=== PATIENT | female | born 1930 | race Caucasian/White ===

== ENCOUNTER 2016-04-14 13:41 | Inpatient (IN) | payer MEDICARE ==
[~2016-04-14] VITALS: Ht 157.5 cm; Wt 75.0 kg
[2016-04-14 16:10] VITALS: BP 152/85; PULSE 78; RESP 18
[2016-04-14] MEDS ORDERED: QUETIAPINE 25 MG TAB PO PRN (17:30)
[2016-04-14] MEDS ORDERED: POLYETHYLENE GLYCOL 17 GM PACKET PO PRN (17:30)
[2016-04-14] MEDS ORDERED: LACTULOSE 30ML CUP PO PRN (17:30)
[2016-04-14] MEDS ORDERED: BISACODYL 10 MG SUPP PR PRN (17:30)
[2016-04-14] MEDS ORDERED: ZOLPIDEM 5 MG TAB PO PRN (18:00)
[2016-04-14] MEDS: ASCORBIC ACID 500 MG TAB PO SCH (18:51)
[2016-04-14] MEDS: FUROSEMIDE 20 MG TAB PO SCH (18:51)
[2016-04-14] MEDS: FERROUS SULFATE (EC) 325 MG TAB PO SCH (18:51)
[2016-04-14] MEDS: PANTOPRAZOLE (EC) 40 MG TAB PO SCH (18:52)
[2016-04-14 18:56] VITALS: Ht 157.5 cm; Wt 75.0 kg
[2016-04-14 19:51] VITALS: BP 135/63; RESP 20
[2016-04-14 23:49] LABS: ADD UMIC YES; URINE BILIRUBIN (Dip) NEGATIVE (NEGATIVE); URINE BLOOD (Dip) NEGATIVE (NEGATIVE); URINE COLOR LT. YELLOW (YELLOW); URINE GLUCOSE (Dip) NEGATIVE (NEGATIVE); URINE KETONES (Dip) NEGATIVE (NEGATIVE); URINE LEUKOCYTE ESTERASE (Dip) 2+ (NEGATIVE); URINE NITRITE (Dip) NEGATIVE (NEGATIVE); URINE TOTAL PROTEIN (Dip) NEGATIVE (NEGATIVE); URINE UROBILINOGEN (Dip) 0.2 E.U./dL (0.1-1.0)
[2016-04-15 00:04] LABS: BACTERIA,URINE FEW; URINE RBCS 0-2 /HPF (0)
[2016-04-15 00:05] LABS: SQUAMOUS EPITHELIAL CELL,UR MODERATE
[2016-04-15] MEDS: HYDROCODONE/APAP (5/325) TAB PO PRN (02:32)
[2016-04-15] MEDS: PANTOPRAZOLE (EC) 40 MG TAB PO SCH ×2 (06:23→17:34)
[2016-04-15] MEDS: FUROSEMIDE 20 MG TAB PO SCH ×2 (06:23→17:34)
[2016-04-15] MEDS: LEVOTHYROXINE 100 MCG TAB PO SCH (06:23)
[2016-04-15 06:55] LABS: BASOPHILS % 0.1 % (0.0-2.0); EOSINOPHILS # 0.1 10^3/ul (0.0-0.5); HEMATOCRIT 25.1 % (37.0-47.0); LYMPHOCYTES # 0.9 10^3/ul (0.8-2.9); LYMPHOCYTES % 16.5 % (15.0-51.0); MEAN CORPUSCULAR HEMOGLOBIN 25.5 pg (29.0-33.0); MEAN CORPUSCULAR VOLUME 79.5 fl (82.0-101.0); MEAN PLATELET VOLUME 8.8 fl (7.4-10.4); MONOCYTE # 0.4 10^3/ul (0.3-0.9); MONOCYTES % 7.5 % (0.0-11.0); NEUTROPHIL # 4.1 10^3/ul (1.6-7.5); NEUTROPHILS % 74.9 % (39.0-77.0); PLATELET COUNT 125 10^3/UL (140-440); RED BLOOD COUNT 3.15 10^6/ul (4.20-5.40); RED CELL DISTRIBUTION WIDTH 27.1 % (11.5-14.5); UNCORRECTED WBC 5.4 10^3/ul (4.8-10.8); WHITE BLOOD COUNT 5.4 10^3/ul (4.8-10.8)
[2016-04-15 07:07] LABS: ALBUMIN 2.5 g/dl (3.3-4.9)
[2016-04-15 07:10] LABS: BILIRUBIN,INDIRECT 0.6 mg/dl (0-1.1); BILIRUBIN,TOTAL 0.6 mg/dl (0.2-1.3); CREATININE 1.12 mg/dl (0.44-1.00)
[2016-04-15 07:11] LABS: ALBUMIN/GLOBULIN RATIO 0.96; CALCIUM 8.3 mg/dl (8.4-10.2); TOTAL PROTEIN 5.1 g/dl (6.1-8.1)
[2016-04-15 07:15] LABS: CONDITION 1; LH ANALYZER COMMENTS 1; SUSPECT 1
[2016-04-15] MEDS ORDERED: INFLUENZA VIRUS VACCINE 0.5 ML (DISPENSING) IM* ONE (09:00)
[2016-04-15] MEDS ORDERED: POTASSIUM CHLORIDE 20 MEQ POWDER FOR ORAL SOLN PO SCH (09:00)
[2016-04-15] MEDS: CALCITRIOL 0.25 MCG CAP PO SCH (09:06)
[2016-04-15] MEDS: ALLOPURINOL 100 MG TAB PO SCH (09:08)
[2016-04-15] MEDS: FERROUS SULFATE (EC) 325 MG TAB PO SCH ×2 (09:08→17:34)
[2016-04-15] MEDS: SPIRONOLACTONE 25 MG TAB PO SCH (09:08)
[2016-04-15] MEDS: ESCITALOPRAM 10 MG TAB PO SCH (09:08)
[2016-04-15] MEDS: TAMOXIFEN 10 MG TAB PO SCH (09:08)
[2016-04-15] MEDS: ASCORBIC ACID 500 MG TAB PO SCH ×2 (09:10→17:33)
--- NOTE | 2016-04-15 11:57 | HP ---
DATE OF ADMISSION: 04/14/2016 CHIEF COMPLAINT: Status post left femur fracture, debility. HISTORY OF PRESENT ILLNESS: This is an 86-year-old female with past medical history of coronary art devorah disease, history of chronic kidney disease stage IIIB/IV with a baseline creatinine around 1.5 t o 1.7 mg/dL, history of CHF, hypertension, history of CVA, history of chronic AFib, who presented to the [facility] emergency room on April 03 with a fall. The patient had x-rays which showe d distal left humeral fracture. The patient was subsequently admitted to [facility] where she underwent an orthopedic evaluation and intermedullary nailing of her left femur. The patient's post operative course was complicated with encephalopathy which is felt to be secondary to ICU hospital s jil. The patient was seen by neurologist, , MRI of the brain was done, there was no evide nce of acute stroke. The patient's mental status eventually improved during the hospital course. T he patient also was noted to have thrombocytopenia which is chronic in nature and was evaluated by h ematologist, Dr. Ronquillo. The patient, however, had a significant decline from her premorbid condit ion and as a result was transferred to [facility] acute rehab for continued care. Upon my evaluation the patient is , currently stable. Denies any fevers, chills, nausea, vomi ting, shortness of breath. Denies any pain. PAST MEDICAL HISTORY: As stated above, history of chronic kidney disease, history of chronic AFib, history of gout, depression, hypothyroidism, history of breast CA, history of chronic venous insuffi ciency. PAST SURGICAL HISTORY: Status post lumpectomy, status post venous mapping, status post endarterecto my. ALLERGIES: PATIENT ALLERGIC TO 1. PENICILLIN. 2. MEPERIDINE. FAMILY HISTORY: No family history of kidney disease or heart disease. SOCIAL HISTORY: Lives at home with her daughter. MEDICATIONS: The patient's medications have been reviewed. REVIEW OF SYSTEMS: A 14-point review of systems was conducted. Pertinent positives in HPI, otherwi se negative. PHYSICAL EXAMINATION: VITAL SIGNS: Blood pressure is 135/62, respirations 20, pulse 73, temperature 98.3. HEENT: Head is normocephalic. NECK: Supple. HEART: Regular rate. LUNGS: Show diminished breath sounds at base. ABDOMEN: Soft, nontender to palpation. No rebound or guarding. EXTREMITIES: Negative for clubbing, cyanosis. Trace edema. 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 NEUROLOGIC: No focal deficits. MUSCULOSKELETAL: Noted dressing over her left femur is clean, dry and intact. LABORATORY DATA: Showed sodium 144, potassium 4.0, chloride 103, BUN 24, creatinine 1.12. White co unt 5.0, hemoglobin 8.0, hematocrit 35.1, platelet count is 125. Medications have been reviewed. ASSESSMENT AND PLAN: 1. Left femoral fracture status post intramedullary nailing. The patient is currently stable. Tahir n is for physical therapy, occupational therapy, continue pain control, monitor closely. 2. Acute encephalopathy, etiology is likely toxic metabolic in hospital stay. Mental status is imp roving. The patient is status post MRI at outside hospital, showed no acute stroke. Will continue to monitor. 3. Chronic kidney disease, stage III. The patient's renal function is at baseline. We will contin ue current treatment plan, supportive care, renally dose all meds. 4. Chronic atrial fibrillation, currently rate controlled. Continue medical management. Continue carvedilol, digoxin. Continue Xarelto. 5. Hypertension. Blood pressure controlled. Continue current blood pressure regimen. 6. Hypothyroidism. Continue Synthroid. 7. History of gout. Continue allopurinol. 8. History of breast cancer. Patient on tamoxifen, will continue. 9. Thrombocytopenia, chronic. Will continue to monitor. 10. Anemia, likely of chronic disease. The patient is status post EGD, colonoscopy at outside hosp ital. No evidence of acute bleed. Will continue to monitor H and H levels closely. 11. Gastrointestinal and deep venous thrombosis prophylaxis. Continue with Xarelto and PPI. 12. Depression. Continue Lexapro. 13. History of congestive heart failure, currently compensated. Continue medical management. Please note I spent over at 20 minutes of face to face time with the patient, discussing code status advance directives, patient is FULL CODE. Dictated By: JAKE OLIVO/MARCO ANTONIO Conf#: [id number] DID#: [id number]
--- NOTE | 2016-04-15 12:19 | CONS ---
DATE OF ADMISSION: 04/14/2016 DATE OF CONSULTATION: 04/15/2016 REHABILITATION POST ADMISSION PHYSICIAN EVALUATION REHABILITATION IMPAIRMENT CATEGORY: Left periprosthetic femur fracture, status post ORIF. ACTIVE COMORBIDITIES: 1. Acute toxic metabolic encephalopathy. 2. Acute pain syndrome. 3. Chronic kidney disease. 4. Hypertension. 5. Hypothyroidism. 6. Depression and anxiety. 7. Anemia. 8. Coronary artery disease. 9. History of atrial fibrillation. 10. Impairments in self-care, mobility and cognition. 11. History of left TKA. HISTORY OF PRESENT ILLNESS: The patient is a pleasant 86-year-old female with a history of multiple medical comorbidities, who is status post a mechanical fall with a resultant left periprosthetic distal femur fracture. The patient did require an ORIF. The patient's hospital course has been notable for confusion secondary to acute encephalopathy, in addition to anemia and pain. The patient has now been cleared to transfer to the rehabilitation unit for comprehensive interdisciplinary rehab care. FUNCTIONAL HISTORY: Prior to recent events she was independent in self-care tasks and mobility. Currently she is maximal assist for self-care and max to total assist for mobility. I have reviewed the preadmission screen and the patient's current functional status is consistent with the preadmission screen. SOCIAL HISTORY: The patient reportedly lives at home with family and hopes to return there upon discharge. PAST MEDICAL HISTORY: 1. History of left total knee arthroplasty. 2. History of low back pain. 3. Chronic kidney disease. 4. Coronary artery disease. 5. Atrial fibrillation. 6. History of GI bleed. 7. History of breast carcinoma. CURRENT MEDICATIONS: 1. Ascorbic acid 500 mg p.o. b.i.d. 2. Digoxin 125 mcg p.o. every other day. 3. Lactulose p.r.n. 4. Potassium chloride 20 mEq daily. 5. Ferrous sulfate 325 b.i.d. 6. Furosemide 20 mg b.i.d. 7. Hydrocodone p.r.n. pain. 8. Protonix 40 mg p.o. daily. 9. Levothyroxine 100 mcg p.o. q.a.m. 10. Calcitriol 0.25 mcg p.o. daily. 11. Carvedilol 3.125 mg p.o. b.i.d. 12. Tamoxifen 20 mg p.o. daily. 13. Xarelto 15 mg p.o. at bedtime. 14. Allopurinol 100 mg p.o. daily. 15. Tramadol p.r.n. ALLERGIES: 1. PENICILLIN. 2. MEPERIDINE. PHYSICAL EXAMINATION: VITAL SIGNS: The patient is currently afebrile, with stable vital signs. HEENT: The extraocular motions are intact. Oropharynx is clear. NECK: Supple. LUNGS: Clear anteriorly. CARDIAC: S1, S2. ABDOMEN: Soft, nontender. Positive bowel sounds. NEUROLOGIC: She is awake and alert. She can follow simple 1-step commands. She has delayed thought processing speed. She demonstrates antigravity strength in the bilateral upper extremity and the right lower extremity. Dorsiflexion and plantar flexion are intact on the left. PLAN: The patient has been admitted for comprehensive interdisciplinary acute rehab and is anticipated to tolerate 3 hours of daily therapy in divided doses for at least 5/7 days a week. The treatment plan will include: 1. Physical therapy to focus on bed mobility, transfers, and household ambulation, with the goal of having the patient reach a standby assist level. 2. Occupational therapy to focus on hygiene, grooming, dressing, bathing, and toileting activities, with the goal of having the patient reach a standby assist level. 3. Speech therapy for full cognitive assessment and retraining, with the goal of having the patient return to baseline cognition. 4. Rehabilitation nursing for carryover of therapeutic interventions, with the goal of continent of bowel and bladder, and the goal of pain adequately managed on oral medications. ESTIMATED LENGTH OF STAY: 14 days. DISPOSITION GOAL: Home. Rehabilitation Barrier: Pain Intervention for barrier: Interdisciplinary care I acknowledge that I have performed a full physical examination on this patient within 24 hours of admission to the rehabilitation unit and believe the patient is a good candidate for comprehensive interdisciplinary rehab care and is anticipated to make reasonable goals in a reasonable period of time, as outlined above. Dictated By: SHARRON CERNA/MARCO ANTONIO Conf#: [id number] DID#: [id number] MTDD
--- NOTE | 2016-04-15 12:36 | CONS ---
DATE OF ADMISSION: 04/14/2016 DATE OF CONSULTATION: 04/15/2016 TYPE OF CONSULTATION: Cardiology. REASON FOR CONSULTATION: Atrial fibrillation. REFERRING PHYSICIAN: Dr. Hdez CHIEF COMPLAINT: Debility, needs rehabilitation. HISTORY OF PRESENT ILLNESS: Thank you for this referral. History obtained from the patient, as wel l as discussion with the staff and extensive review of the old chart. The patient is also known to me from outpatient workup and previous admission to the hospital. This is a pleasant 86-year-old fe male with multiple complicated medical history who was transferred from [facility] for acute r ehabilitation. The patient had suffered a fall and apparently had a hip fracture and apparently un dergone a hip surgery. Has complicated ____. Had a complicated cardiac history ____ . The patient denies any chest pain or pressure to me. Has mild shortness of breath but has been stable. She has chronic atrial fibrillation, has been controlled on the heart rate. She has been as an outpatient on Xarelto, had been held for some time at [place] because OB positive stool and anemia. She had a workup including EGD and colonoscopy done and it was thought it can be resumed as long as she is mon itored. She has mild shortness of breath but no chest pain or pressure, no palpitation. PAST MEDICAL HISTORY: History of hypertension, history of atrial fibrillation, chronic, history of TIAs/CVA, history of chronic kidney disease, congestive heart failure secondary to diastolic dysfunc tion with normal ejection fraction, history of anxiety. SURGICAL HISTORY: Hysterectomy, breast lumpectomy, orthopedic surgery, bilateral knee surgery, hip surgery. ALLERGIES: 1. PENICILLIN. 2. ____ MEDICATIONS: As per medication reconciliation, personally reviewed which includes: 1. Xarelto 15 mg. 2. Digoxin 0.125. 3. Potassium. 4. Levothyroxine. 5. Lasix 20 p.o. b.i.d. 6. Carvedilol 12.5 b.i.d. REVIEW OF SYSTEMS: As above. The patient also with poor memory. PHYSICAL EXAMINATION: VITAL SIGNS: Temperature 98.3, heart rate of 74, blood pressure 135/63, respiration rate of 20, sat urating 99%. HEENT: Normocephalic, atraumatic. No acute distress. Pupils are equal. CARDIOVASCULAR: Regular, regular, systolic murmur. PULMONARY: Minimal rhonchi at the base. GASTROINTESTINAL: Soft, nontender. EXTREMITIES: Positive trivial lower extremity edema. NEUROLOGIC: Awake, responds appropriately to person and place. PSYCHIATRIC: Appears to be calm and pleasant. LABORATORY: WBC of 5.4, hemoglobin 8, platelet 125. Sodium 144, potassium 4, BUN of 24, creatinine 1.12, glucose 103. Albumin is 2.5. ASSESSMENT AND PLAN: 1. Atrial fibrillation, chronic, currently on anticoagulation and heart rate control. 2. Congestive heart failure secondary to diastolic dysfunction, chronic and stable. We will contin ue with the current regimen. 3. History of chronic kidney disease. 4. Kidney disease. 5. Hypertension. 6. History of cerebrovascular accidents. 7. Anemia and OB positive stool, status post workup. 8. Encephalopathy, currently has improved. 9. History of anxiety disorder. RECOMMENDATIONS: We will continue with the current cardiac care for now including beta higinio, nicole t Coreg and digoxin. Thyroid management will be continued. Diuresis will be continued as ____ phys ical therapy and rehab will be continued. I will discontinue patient's potassium and instead put he r on Aldactone. We will check electrolytes and adjust it as needed. Dictated By: AUGUST BALDWIN/MARCO ANTONIO Conf#: [id number] DID#: [id number] CC: JAKE HDEZ DO;*EndCC*
[2016-04-15] MEDS: DIGOXIN 0.125 MG TAB PO SCH (12:54)
[2016-04-15] MEDS ORDERED: TEMAZEPAM 15 MG CAP PO PRN (13:00)
[2016-04-15] MEDS: RIVAROXABAN 15 MG TABLET PO SCH (17:34)
[2016-04-15] MEDS: TEMAZEPAM 15 MG CAP PO PRN (20:10)
[2016-04-15 21:24] VITALS: BP 119/59; RESP 18
[2016-04-16] MEDS: LEVOTHYROXINE 100 MCG TAB PO SCH (06:37)
[2016-04-16] MEDS: PANTOPRAZOLE (EC) 40 MG TAB PO SCH ×2 (06:37→17:36)
[2016-04-16] MEDS: FUROSEMIDE 20 MG TAB PO SCH ×2 (06:38→17:39)
[2016-04-16 08:00] VITALS: BP 139/73; PULSE 70; PULSE 72; RESP 20
[2016-04-16 08:16] LABS: BASOPHILS % 0.4 % (0.0-2.0); EOSINOPHILS # 0.1 10^3/ul (0.0-0.5); HEMATOCRIT 26.7 % (37.0-47.0); HEMOGLOBIN 8.6 g/dl (12.0-16.0); LYMPHOCYTES % 19.2 % (15.0-51.0); MEAN CORPUSCULAR HEMOGLOBIN 25.8 pg (29.0-33.0); MEAN CORPUSCULAR HGB CONC 32.3 g/dl (32.0-37.0); MEAN CORPUSCULAR VOLUME 79.8 fl (82.0-101.0); MEAN PLATELET VOLUME 9.2 fl (7.4-10.4); MONOCYTE # 0.4 10^3/ul (0.3-0.9); MONOCYTES % 7.8 % (0.0-11.0); NEUTROPHIL # 3.6 10^3/ul (1.6-7.5); NEUTROPHILS % 71.6 % (39.0-77.0); PLATELET COUNT 122 10^3/UL (140-440); RED BLOOD COUNT 3.35 10^6/ul (4.20-5.40); RED CELL DISTRIBUTION WIDTH 27.9 % (11.5-14.5)
[2016-04-16 08:19] LABS: ALBUMIN 2.7 g/dl (3.3-4.9); POTASSIUM 3.8 mmol/L (3.5-5.1)
[2016-04-16 08:21] LABS: CREATININE 1.24 mg/dl (0.44-1.00)
[2016-04-16 08:22] LABS: BILIRUBIN,INDIRECT 0.5 mg/dl (0-1.1); BILIRUBIN,TOTAL 0.5 mg/dl (0.2-1.3); CALCIUM 8.3 mg/dl (8.4-10.2); TOTAL PROTEIN 5.4 g/dl (6.1-8.1)
[2016-04-16 08:36] LABS: SUSPECT 1
[2016-04-16 08:37] LABS: CONDITION 1; LH ANALYZER COMMENTS 1
[2016-04-16] MEDS: ESCITALOPRAM 10 MG TAB PO SCH (08:57)
[2016-04-16] MEDS: SPIRONOLACTONE 25 MG TAB PO SCH (08:57)
[2016-04-16] MEDS: ASCORBIC ACID 500 MG TAB PO SCH ×2 (08:57→17:37)
[2016-04-16] MEDS: FERROUS SULFATE (EC) 325 MG TAB PO SCH ×2 (08:57→17:36)
[2016-04-16] MEDS: CALCITRIOL 0.25 MCG CAP PO SCH (08:57)
[2016-04-16] MEDS: ALLOPURINOL 100 MG TAB PO SCH (08:58)
[2016-04-16] MEDS: TAMOXIFEN 10 MG TAB PO SCH (08:59)
[2016-04-16 09:05] VITALS: BP 127/57; PULSE 76; RESP 20
[2016-04-16 09:23] VITALS: BP 139/73; RESP 18
--- NOTE | 2016-04-16 09:43 | CONS ---
Date/Time of Note Date/Time of Note DATE: 04/16/16 TIME: 09:42 Consult Date/Type/Reason Admit Date/Time Apr 14, 2016 at 15:51 Initial Consult Date Subjective pt. feels ok. d/w rn no new c/o. no bleeding. Objective Vital Signs Date Time Temp Pulse Resp B/P Pulse Ox O2 Delivery O2 Flow Rate FiO2 04/16/16 09:23 97.8 70 18 139/73 92 04/16/16 09:05 Nasal Cannula 2.0 Intake and Output 04/15/16 04/15/16 04/16/16 15:00 23:00 07:00 Intake Total 400 ml 660 ml Output Total 200 ml Balance 200 ml 660 ml HEENT: Head is normocephalic. NECK: Supple. HEART: Regular rate. LUNGS: Show diminished breath sounds at base. ABDOMEN: Soft, nontender to palpation. No rebound or guarding. EXTREMITIES: Negative for clubbing, cyanosis. Trace edema. 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 NEUROLOGIC: No focal deficits. MUSCULOSKELETAL: Noted dressing over her left femur is clean, dry and intact. Results/Medications Result Diagram: 04/16/16 0605 04/16/16 0605 Results 24 hrs Laboratory Tests Test 04/16/16 06:05 Alanine Aminotransferase (ALT/SGPT) 27 Albumin 2.7 L Albumin/Globulin Ratio 1.00 Alkaline Phosphatase 86 Anion Gap 12 Aspartate Amino Transf (AST/SGOT) 30 B-Type Natriuretic Peptide 4060 H Basophils # 0.0 Basophils % 0.4 Blood Morphology Comment Blood Urea Nitrogen 30 H Calcium Level 8.3 L Carbon Dioxide Level 33 H Chloride Level 101 Creatinine 1.24 H Direct Bilirubin 0.00 Eosinophils # 0.1 Eosinophils % 1.0 Globulin 2.70 Glucose Level 91 Hematocrit 26.7 L Hemoglobin 8.6 L Indirect Bilirubin 0.5 Lymphocytes # 1.0 Lymphocytes % 19.2 Mean Corpuscular Hemoglobin 25.8 L Mean Corpuscular Hemoglobin Concent 32.3 Mean Corpuscular Volume 79.8 L Mean Platelet Volume 9.2 Monocytes # 0.4 Monocytes % 7.8 Neutrophils # 3.6 Neutrophils % 71.6 Nucleated Red Blood Cells # 0.0 Nucleated Red Blood Cells % 0.0 Platelet Count 122 L Potassium Level 3.8 Red Blood Count 3.35 L Red Cell Distribution Width 27.9 H Sodium Level 142 Total Bilirubin 0.5 Total Protein 5.4 L White Blood Count 5.0 Medications Current Medications Bisacodyl (Dulcolax Supp) 10 mg DAILY PRN MD CONSTIPATION; Start 04/14/16 at 17 :30 Digoxin (Digoxin) 0.125 mg Q48H PO Last administered on 04/15/16 12:54; Admin Dose 0.125 MG; Start 04/15/16 at 13:00 Docusate Sodium (Colace) 100 mg BID PRN PO CONSTIPATION; Start 04/14/16 at 17: 30 Lactulose (Enulose) 20 gm DAILY PRN PO CONSTIPATION; Start 04/14/16 at 17:30 Polyethylene Glycol (Miralax) 17 gm DAILY PRN PO CONSTIPATION; Start 04/14/16 at 17:30 Quetiapine Fumarate (Seroquel) 12.5 mg Q6H PRN PO AGITATION; Start 04/14/16 at 17:30 Acetaminophen/ Hydrocodone Bitart ([place] (5/325)) 1 tab Q4H PRN PO SEVERE PAIN Last administered on 04/15/16 02:32; Admin Dose 1 TAB; Start 04/14/16 at 17:30 Levothyroxine Sodium (Synthroid) 100 mcg DAILY@06 PO Last administered on 06:37; Admin Dose 100 MCG; Start 04/15/16 at 06:00 Pantoprazole (Protonix Tab) 40 mg BID@06,18 PO Last administered on 04/16/16 06:37; Admin Dose 40 MG; Start 04/14/16 at 18:00 Tramadol HCl (Ultram) 50 mg Q6H PRN PO MODERATE PAIN; Start 04/14/16 at 17:30 Acetaminophen (Tylenol Tab) 650 mg Q4H PRN PO PAIN AND OR ELEVATED TEMP; Start 04/14/16 at 18:00 Allopurinol (Zyloprim) 100 mg DAILY PO Last administered on 04/16/16 08:58; Admin Dose 100 MG; Start 04/15/16 at 09:00 Calcitriol (Rocaltrol) 0.25 mcg DAILY PO Last administered on 04/16/16 08:57; Admin Dose 0.25 MCG; Start 04/15/16 at 09:00 Escitalopram Oxalate (Lexapro) 10 mg DAILY PO Last administered on 04/16/16 08 :57; Admin Dose 10 MG; Start 04/15/16 at 09:00 Tamoxifen Citrate (Nolvadex) 20 mg DAILY PO Last administered on 04/16/16 08: 59; Admin Dose 20 MG; Start 04/15/16 at 09:00 Spironolactone (Aldactone) 25 mg DAILY PO Last administered on 04/16/16 08:57 ; Admin Dose 25 MG; Start 04/15/16 at 09:00 Temazepam (Restoril) 30 mg HS PRN PO INSOMNIA Last administered on 04/15/16 20 :10; Admin Dose 30 MG; Start 04/15/16 at 13:00 Assessment/Plan Chief Complaint/Hosp Course 1. Left femoral fracture status post intramedullary nailing. The patient is currently stable. Plan is for physical therapy, occupational therapy, continue pain control, monitor closely. 2. Acute encephalopathy, etiology is likely toxic metabolic in hospital stay. Mental status is improving. The patient is status post MRI at outside hospital , showed no acute stroke. Will continue to monitor. 3. Chronic kidney disease, stage III. The patient's renal function is at baseline. We will continue current treatment plan, supportive care, renally dose all meds. 4. Chronic atrial fibrillation, currently rate controlled. Continue medical management. Continue carvedilol, digoxin. Continue Xarelto. 5. Hypertension. Blood pressure controlled. Continue current blood pressure regimen. 6. Hypothyroidism. Continue Synthroid. 7. History of gout. Continue allopurinol. 8. History of breast cancer. Patient on tamoxifen, will continue. 9. Thrombocytopenia, chronic. Will continue to monitor. 10. Anemia, likely of chronic disease. The patient is status post EGD, colonoscopy at outside hospital. No evidence of acute bleed. Will continue to monitor H and H levels closely. 11. Gastrointestinal and deep venous thrombosis prophylaxis. Continue with Xarelto and PPI. 12. Depression. Continue Lexapro. 13. History of congestive heart failure, currently compensated. Continue medical management. Problems: MONIQUE ANDERSON MD Apr 16, 2016 09:43
[2016-04-16 10:10] LABS: MAGNESIUM 1.7 mg/dl (1.7-2.5); PHOSPHORUS 3.6 mg/dl (2.5-4.9)
--- NOTE | 2016-04-16 10:19 | CONS ---
Date/Time of Note Date/Time of Note DATE: 04/16/16 TIME: 10:17 Consult Date/Type/Reason Admit Date/Time Apr 14, 2016 at 15:51 Initial Consult Date Subjective Slept better last night Objective pulm- cta max assist transfer Vital Signs Date Time Temp Pulse Resp B/P Pulse Ox O2 Delivery O2 Flow Rate FiO2 04/16/16 09:23 97.8 70 18 139/73 92 04/16/16 09:05 Nasal Cannula 2.0 Intake and Output 04/15/16 04/15/16 04/16/16 15:00 23:00 07:00 Intake Total 400 ml 660 ml Output Total 200 ml Balance 200 ml 660 ml Results/Medications Result Diagram: 04/16/16 0605 04/16/16 0605 Results 24 hrs Laboratory Tests Test 04/16/16 06:05 Alanine Aminotransferase (ALT/SGPT) 27 Albumin 2.7 L Albumin/Globulin Ratio 1.00 Alkaline Phosphatase 86 Anion Gap 12 Aspartate Amino Transf (AST/SGOT) 30 B-Type Natriuretic Peptide 4060 H Basophils # 0.0 Basophils % 0.4 Blood Morphology Comment Blood Urea Nitrogen 30 H Calcium Level 8.3 L Carbon Dioxide Level 33 H Chloride Level 101 Creatinine 1.24 H Direct Bilirubin 0.00 Eosinophils # 0.1 Eosinophils % 1.0 Globulin 2.70 Glucose Level 91 Hematocrit 26.7 L Hemoglobin 8.6 L Indirect Bilirubin 0.5 Lymphocytes # 1.0 Lymphocytes % 19.2 Magnesium Level 1.7 Mean Corpuscular Hemoglobin 25.8 L Mean Corpuscular Hemoglobin Concent 32.3 Mean Corpuscular Volume 79.8 L Mean Platelet Volume 9.2 Monocytes # 0.4 Monocytes % 7.8 Neutrophils # 3.6 Neutrophils % 71.6 Nucleated Red Blood Cells # 0.0 Nucleated Red Blood Cells % 0.0 Phosphorus Level 3.6 Platelet Count 122 L Potassium Level 3.8 Red Blood Count 3.35 L Red Cell Distribution Width 27.9 H Sodium Level 142 Total Bilirubin 0.5 Total Protein 5.4 L White Blood Count 5.0 Medications Current Medications Bisacodyl (Dulcolax Supp) 10 mg DAILY PRN [place] CONSTIPATION; Start 04/14/16 at 17 :30 Digoxin (Digoxin) 0.125 mg Q48H PO Last administered on 04/15/16t 12:54; Admin Dose 0.125 MG; Start 04/15/16 at 13:00 Docusate Sodium (Colace) 100 mg BID PRN PO CONSTIPATION; Start 04/14/16 at 17: 30 Lactulose (Enulose) 20 gm DAILY PRN PO CONSTIPATION; Start 04/14/16 at 17:30 Polyethylene Glycol (Miralax) 17 gm DAILY PRN PO CONSTIPATION; Start 04/14/16 at 17:30 Quetiapine Fumarate (Seroquel) 12.5 mg Q6H PRN PO AGITATION; Start 04/14/16 at 17:30 Acetaminophen/ Hydrocodone Bitart ([place] (5/325)) 1 tab Q4H PRN PO SEVERE PAIN Last administered on 04/15/16 02:32; Admin Dose 1 TAB; Start 04/14/16 at 17:30 Levothyroxine Sodium (Synthroid) 100 mcg DAILY@06 PO Last administered on 06:37; Admin Dose 100 MCG; Start 04/15/16 at 06:00 Pantoprazole (Protonix Tab) 40 mg BID@06,18 PO Last administered on 04/16/16 06:37; Admin Dose 40 MG; Start 04/14/16 at 18:00 Tramadol HCl (Ultram) 50 mg Q6H PRN PO MODERATE PAIN; Start 04/14/16 at 17:30 Acetaminophen (Tylenol Tab) 650 mg Q4H PRN PO PAIN AND OR ELEVATED TEMP; Start 04/14/16 at 18:00 Allopurinol (Zyloprim) 100 mg DAILY PO Last administered on 04/16/16 08:58; Admin Dose 100 MG; Start 04/15/16 at 09:00 Calcitriol (Rocaltrol) 0.25 mcg DAILY PO Last administered on 04/16/16 08:57; Admin Dose 0.25 MCG; Start 04/15/16 at 09:00 Escitalopram Oxalate (Lexapro) 10 mg DAILY PO Last administered on 04/16/16 08 :57; Admin Dose 10 MG; Start 04/15/16 at 09:00 Tamoxifen Citrate (Nolvadex) 20 mg DAILY PO Last administered on 04/16/16 08: 59; Admin Dose 20 MG; Start 04/15/16 at 09:00 Spironolactone (Aldactone) 25 mg DAILY PO Last administered on 04/16/16 08:57 ; Admin Dose 25 MG; Start 04/15/16 at 09:00 Temazepam (Restoril) 30 mg HS PRN PO INSOMNIA Last administered on 04/15/16 20 :10; Admin Dose 30 MG; Start 04/15/16 at 13:00 Assessment/Plan Additional Assessment/Plan Rehab- Left periprosthetic femur fracture, status post ORIF; h.o TKA; Acute toxic metabolic encephalopathy. Tolerating rehab program Acute pain syndrome. Chronic kidney disease. Hypertension. Hypothyroidism. Depression and anxiety. Anemia. Coronary artery disease. History of atrial fibrillation. SHARRON CELESTIN MD Apr 16, 2016 10:19
[2016-04-16] MEDS: RIVAROXABAN 15 MG TABLET PO SCH (17:36)
[2016-04-16 17:41] VITALS: BP 144/53; PULSE 68; RESP 20
[2016-04-16 20:55] VITALS: BP 131/60; RESP 18
[2016-04-16] MEDS: TEMAZEPAM 15 MG CAP PO PRN (21:31)
[2016-04-17] MEDS ORDERED: FUROSEMIDE 20 MG TAB PO SCH (06:00)
[2016-04-17] MEDS: LEVOTHYROXINE 100 MCG TAB PO SCH (06:09)
[2016-04-17] MEDS: PANTOPRAZOLE (EC) 40 MG TAB PO SCH ×2 (06:09→17:25)
[2016-04-17] MEDS: FUROSEMIDE 40 MG TAB PO SCH ×2 (06:10→17:25)
[2016-04-17 07:30] VITALS: BP 141/64; RESP 20
[2016-04-17 08:00] VITALS: BP 141/64; PULSE 66; PULSE 68; RESP 18
[2016-04-17] MEDS: ASCORBIC ACID 500 MG TAB PO SCH ×2 (08:40→17:24)
[2016-04-17] MEDS: HYDROCODONE/APAP (5/325) TAB PO PRN (08:40)
[2016-04-17] MEDS: TAMOXIFEN 10 MG TAB PO SCH (08:43)
[2016-04-17] MEDS: FERROUS SULFATE (EC) 325 MG TAB PO SCH ×2 (08:44→17:24)
[2016-04-17] MEDS: CALCITRIOL 0.25 MCG CAP PO SCH (08:44)
[2016-04-17] MEDS: ALLOPURINOL 100 MG TAB PO SCH (08:44)
[2016-04-17] MEDS: ESCITALOPRAM 10 MG TAB PO SCH (08:44)
[2016-04-17] MEDS: SPIRONOLACTONE 25 MG TAB PO SCH (08:44)
--- NOTE | 2016-04-17 10:07 | CONS ---
Date/Time of Note Date/Time of Note DATE: 04/17/16 TIME: 10:06 Consult Date/Type/Reason Admit Date/Time Apr 14, 2016 at 15:51 Type of Consultation: nephro Subjective all noted. d/w PT good uop. no distress d/w rn . Objective Vital Signs Date Time Temp Pulse Resp B/P Pulse Ox O2 Delivery O2 Flow Rate FiO2 04/17/16 08:00 97.7 68 18 141/64 97 Room Air 66 04/16/16 23:30 2.0 Intake and Output 04/16/16 04/16/16 04/17/16 15:00 23:00 07:00 Intake Total 600 ml 240 ml 240 ml Output Total 100 ml Balance 500 ml 240 ml 240 ml HEENT: Head is normocephalic. NECK: Supple. HEART: Regular rate. LUNGS: Show diminished breath sounds at base. ABDOMEN: Soft, nontender to palpation. No rebound or guarding. EXTREMITIES: Negative for clubbing, cyanosis. Trace edema. 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 NEUROLOGIC: No focal deficits. MUSCULOSKELETAL: Noted dressing over her left femur is clean, dry and intact. Results/Medications Result Diagram: 04/16/1660404/16/16 0605 Medications Current Medications Bisacodyl (Dulcolax Supp) 10 mg DAILY PRN [place] CONSTIPATION; Start 04/14/16 at 17 :30 Digoxin (Digoxin) 0.125 mg Q48H PO Last administered on 04/15/16t 12:54; Admin Dose 0.125 MG; Start 04/15/16 at 13:00 Docusate Sodium (Colace) 100 mg BID PRN PO CONSTIPATION; Start 04/14/16 at 17: 30 Lactulose (Enulose) 20 gm DAILY PRN PO CONSTIPATION; Start 04/14/16 at 17:30 Polyethylene Glycol (Miralax) 17 gm DAILY PRN PO CONSTIPATION; Start 04/14/16 at 17:30 Quetiapine Fumarate (Seroquel) 12.5 mg Q6H PRN PO AGITATION; Start 04/14/16 at 17:30 Acetaminophen/ Hydrocodone Bitart ([place] (5/325)) 1 tab Q4H PRN PO SEVERE PAIN Last administered on 04/17/16 08:40; Admin Dose 1 TAB; Start 04/14/16 at 17:30 Levothyroxine Sodium (Synthroid) 100 mcg DAILY@06 PO Last administered on 06:09; Admin Dose 100 MCG; Start 04/15/16 at 06:00 Pantoprazole (Protonix Tab) 40 mg BID@06,18 PO Last administered on 04/17/16 06:09; Admin Dose 40 MG; Start 04/14/16 at 18:00 Tramadol HCl (Ultram) 50 mg Q6H PRN PO MODERATE PAIN; Start 04/14/16 at 17:30 Acetaminophen (Tylenol Tab) 650 mg Q4H PRN PO PAIN AND OR ELEVATED TEMP; Start 04/14/16 at 18:00 Allopurinol (Zyloprim) 100 mg DAILY PO Last administered on 04/17/16 08:44; Admin Dose 100 MG; Start 04/15/16 at 09:00 Calcitriol (Rocaltrol) 0.25 mcg DAILY PO Last administered on 04/17/16 08:44; Admin Dose 0.25 MCG; Start 04/15/16 at 09:00 Escitalopram Oxalate (Lexapro) 10 mg DAILY PO Last administered on 04/17/16 08 :44; Admin Dose 10 MG; Start 04/15/16 at 09:00 Tamoxifen Citrate (Nolvadex) 20 mg DAILY PO Last administered on 04/17/16 08: 43; Admin Dose 20 MG; Start 04/15/16 at 09:00 Spironolactone (Aldactone) 25 mg DAILY PO Last administered on 04/17/16 08:44 ; Admin Dose 25 MG; Start 04/15/16 at 09:00 Temazepam (Restoril) 30 mg HS PRN PO INSOMNIA Last administered on 04/16/16 21 :31; Admin Dose 30 MG; Start 04/15/16 at 13:00 Assessment/Plan Chief Complaint/Hosp Course 1. Left femoral fracture status post intramedullary nailing. The patient is currently stable. Plan is for physical therapy, occupational therapy, continue pain control, monitor closely. 2. Acute encephalopathy, etiology is likely toxic metabolic in hospital stay. Mental status is improving. The patient is status post MRI at outside hospital , showed no acute stroke. Will continue to monitor. 3. Chronic kidney disease, stage III. The patient's renal function is at baseline. We will continue current treatment plan, supportive care, renally dose all meds. 4. Chronic atrial fibrillation, currently rate controlled. Continue medical management. Continue carvedilol, digoxin. Continue Xarelto. 5. Hypertension. Blood pressure controlled. Continue current blood pressure regimen. 6. Hypothyroidism. Continue Synthroid. 7. History of gout. Continue allopurinol. 8. History of breast cancer. Patient on tamoxifen, will continue. 9. Thrombocytopenia, chronic. Will continue to monitor. 10. Anemia, likely of chronic disease. The patient is status post EGD, colonoscopy at outside hospital. No evidence of acute bleed. Will continue to monitor H and H levels closely. 11. Gastrointestinal and deep venous thrombosis prophylaxis. Continue with Xarelto and PPI. 12. Depression. Continue Lexapro. 13. History of congestive heart failure, currently compensated. Continue medical management. Problems: MONIQUE ANDERSON MD Apr 17, 2016 10:07
--- NOTE | 2016-04-17 10:17 | RADRPT ---
PROCEDURE: XR Chest. CLINICAL INDICATION: CHF TECHNIQUE: Single frontal chest x-ray. COMPARISON: None. FINDINGS: There is opacification left lung base likely combination of pleural effusion and atelectasis/infiltr ate. The right lung is clear. The cardiac silhouette is not well visualized. The aortic arch is c alcified. Degenerative changes seen at the thoracic spine with apex right. Surgical clips are seen in the left axillary region. IMPRESSION: 1. Opacification left lower lung likely a combination of small pleural effusion and atelectasis mello heather infiltrate. 2. Atherosclerotic aortic calcifications. RPTAT: QQ .Ed Toledo MD, MD Date Time Electronically viewed and signed by .Ed Toledo MD, on 04/17/2016 10:17 .d/
[2016-04-17 12:36] VITALS: BP 126/56; PULSE 62; RESP 18
[2016-04-17] MEDS: DIGOXIN 0.125 MG TAB PO SCH (12:36)
[2016-04-17] MEDS: RIVAROXABAN 15 MG TABLET PO SCH (17:24)
[2016-04-17 21:48] VITALS: BP 134/54; RESP 19
[2016-04-18] MEDS: LEVOTHYROXINE 100 MCG TAB PO SCH (06:06)
[2016-04-18] MEDS: PANTOPRAZOLE (EC) 40 MG TAB PO SCH ×2 (06:06→17:25)
[2016-04-18] MEDS: FUROSEMIDE 40 MG TAB PO SCH ×2 (06:07→17:30)
[2016-04-18 07:30] VITALS: BP 146/63; RESP 20
[2016-04-18 08:01] LABS: ALBUMIN 3.3 g/dl (3.3-4.9)
[2016-04-18 08:02] LABS: POTASSIUM 3.8 mmol/L (3.5-5.1)
[2016-04-18 08:04] LABS: BILIRUBIN,INDIRECT 0.9 mg/dl (0-1.1); BILIRUBIN,TOTAL 0.9 mg/dl (0.2-1.3); CREATININE 1.19 mg/dl (0.44-1.00); TOTAL PROTEIN 6.6 g/dl (6.1-8.1)
[2016-04-18 08:05] LABS: CALCIUM 8.2 mg/dl (8.4-10.2); MAGNESIUM 1.4 mg/dl (1.7-2.5)
[2016-04-18] MEDS: CALCITRIOL 0.25 MCG CAP PO SCH (08:47)
[2016-04-18] MEDS: SPIRONOLACTONE 25 MG TAB PO SCH (08:47)
[2016-04-18] MEDS: ESCITALOPRAM 10 MG TAB PO SCH (08:47)
[2016-04-18] MEDS: ALLOPURINOL 100 MG TAB PO SCH (08:47)
[2016-04-18] MEDS: FERROUS SULFATE (EC) 325 MG TAB PO SCH ×2 (08:47→17:24)
[2016-04-18] MEDS: ASCORBIC ACID 500 MG TAB PO SCH ×2 (08:47→17:24)
[2016-04-18] MEDS: TAMOXIFEN 10 MG TAB PO SCH (08:48)
[2016-04-18] MEDS ORDERED: MAGNESIUM OXIDE 400 MG TAB PO ONE (10:00)
--- NOTE | 2016-04-18 10:28 | PN ---
DATE: 04/18/2016 SUBJECTIVE: The patient is stable, no acute events overnight. No fevers, chills, nausea, vomiting. No shortness of breath. OBJECTIVE: VITAL SIGNS: Blood pressure is 134/54, respiration 19, pulse 58, temperature 98.3. HEENT: Head is normocephalic. NECK: Supple. HEART: Regular rate. LUNGS: Show diminished breath sounds at the base. ABDOMEN: Soft, nontender to palpation without rebound or guarding. EXTREMITIES: Negative for clubbing, cyanosis. Trace edema. DERMATOLOGIC: No rashes. MUSCULOSKELETAL: No joint effusions. NEUROLOGIC: No change in exam. MEDICATIONS: The patient's medications have been reviewed. LABORATORY DATA: Shows sodium 144, potassium 3.8, chloride 97, BUN 26, creatinine 1.19. White coun t 5.0, hemoglobin 8.6, platelet count 122, magnesium level is 1.4. IMAGING: Chest x-ray reviewed shows questionable left lower lobe opacification. ASSESSMENT AND PLAN: 1. Left femoral fracture status post intramedullary nailing. The patient is currently stable. Con anaue PT, OT. 2. Acute encephalopathy. Etiology is toxic metabolic. Mental status slowly improving. We will co ntinue to monitor. 3. Chronic kidney disease, stage III. Renal function near baseline. Continue treatment plan, supp ortive care, monitor on diuretic therapy. 4. Chronic atrial fibrillation, currently rate controlled. Continue current medical management wit h Coreg, Digoxin and Xarelto. 5. Hypertension, controlled. Continue current blood pressure regimen. 6. Hypothyroidism. Continue Synthroid. 7. History of gout. Continue allopurinol. 8. Diastolic heart failure. The patient is clinically stable. Continue diuretic therapy, continue medical management. 9. History of breast cancer, patient on tamoxifen. 10. Thrombocytopenia, chronic. Continue to monitor. 11. Depression. Continue Lexapro. 12. Anemia of chronic disease. Continue to monitor H and H levels. 13. Gastrointestinal and deep venous thrombosis prophylaxis. Continue proton pump inhibitor and Xa relto. 14. Hypomagnesemia, replete with magnesium oxide. Dictated By: JAKE MARCIAL DO NR/NTS Conf#: [id number] DID#: [id number]
--- NOTE | 2016-04-18 12:11 | CONS ---
Date/Time of Note Date/Time of Note DATE: 04/18/16 TIME: 12:05 Consult Date/Type/Reason Admit Date/Time Apr 14, 2016 at 15:51 Type of Consultation: nephro Subjective Pt comfortable Objective Vital Signs Date Time Temp Pulse Resp B/P Pulse Ox O2 Delivery O2 Flow Rate FiO2 04/17/16 21:48 98.3 58 19 134/54 99 04/17/16 21:29 Nasal Cannula 2.0 Intake and Output 04/17/16 04/17/16 04/18/16 15:00 23:00 07:00 Intake Total 880 ml 420 ml Output Total 780 ml Balance 100 ml 420 ml INTERDISCIPLINARY TEAM CONFERENCE BOWEL- Cont BLADDER-Cont SKIN- intact OT- DRESSING-mod BATHING-mod TOILETING-mod PT- BED MOBILITY-max TRANSFERS-max AMBULATION-max 10 feet A/P- Interdisciplinary team conference held today. Please see interdisciplinary sheet. Working toward d.cCatherine on 04/28 with post discharge follow up of physical therapy, occupational therapy. Results/Medications Result Diagram: 04/16/16 0605 04/18/16 0655 Results 24 hrs Laboratory Tests Test 04/18/16 06:55 Alanine Aminotransferase (ALT/SGPT) 26 Albumin 3.3 Albumin/Globulin Ratio 1.00 Alkaline Phosphatase 134 H Anion Gap 14 Aspartate Amino Transf (AST/SGOT) 31 B-Type Natriuretic Peptide 4660 H Blood Urea Nitrogen 26 H Calcium Level 8.2 L Carbon Dioxide Level 37 H Chloride Level 97 Creatinine 1.19 H Direct Bilirubin 0.00 Globulin 3.30 H Glucose Level 110 Indirect Bilirubin 0.9 Magnesium Level 1.4 L Potassium Level 3.8 Sodium Level 144 Total Bilirubin 0.9 Total Protein 6.6 Medications Current Medications Bisacodyl (Dulcolax Supp) 10 mg DAILY PRN [place] CONSTIPATION; Start 04/14/16 at 17 :30 Digoxin (Digoxin) 0.125 mg Q48H PO Last administered on 04/17/16t 12:36; Admin Dose 0.125 MG; Start 04/15/16 at 13:00 Docusate Sodium (Colace) 100 mg BID PRN PO CONSTIPATION; Start 04/14/16 at 17: 30 Lactulose (Enulose) 20 gm DAILY PRN PO CONSTIPATION; Start 04/14/16 at 17:30 Polyethylene Glycol (Miralax) 17 gm DAILY PRN PO CONSTIPATION; Start 04/14/16 at 17:30 Quetiapine Fumarate (Seroquel) 12.5 mg Q6H PRN PO AGITATION; Start 04/14/16 at 17:30 Acetaminophen/ Hydrocodone Bitart ([place] (5/325)) 1 tab Q4H PRN PO SEVERE PAIN Last administered on 04/17/16 08:40; Admin Dose 1 TAB; Start 04/14/16 at 17:30 Levothyroxine Sodium (Synthroid) 100 mcg DAILY@06 PO Last administered on 06:06; Admin Dose 100 MCG; Start 04/15/16 at 06:00 Pantoprazole (Protonix Tab) 40 mg BID@,18 PO Last administered on 04/18/16 06:06; Admin Dose 40 MG; Start 04/14/16 at 18:00 Tramadol HCl (Ultram) 50 mg Q6H PRN PO MODERATE PAIN; Start 04/14/16 at 17:30 Acetaminophen (Tylenol Tab) 650 mg Q4H PRN PO PAIN AND OR ELEVATED TEMP; Start 04/14/16 at 18:00 Allopurinol (Zyloprim) 100 mg DAILY PO Last administered on 04/18/16 08:47; Admin Dose 100 MG; Start 04/15/16 at 09:00 Calcitriol (Rocaltrol) 0.25 mcg DAILY PO Last administered on 04/18/16 08:47; Admin Dose 0.25 MCG; Start 04/15/16 at 09:00 Escitalopram Oxalate (Lexapro) 10 mg DAILY PO Last administered on 04/18/16 08 :47; Admin Dose 10 MG; Start 04/15/16 at 09:00 Tamoxifen Citrate (Nolvadex) 20 mg DAILY PO Last administered on 04/18/16 08: 48; Admin Dose 20 MG; Start 04/15/16 at 09:00 Spironolactone (Aldactone) 25 mg DAILY PO Last administered on 04/18/16 08:47 ; Admin Dose 25 MG; Start 04/15/16 at 09:00 Temazepam (Restoril) 30 mg HS PRN PO INSOMNIA Last administered on 04/16/16 21 :31; Admin Dose 30 MG; Start 04/15/16 at 13:00 Betamethasone/ Clotrimazole (Lotrisone Cr) 1 applic BID TOP ; Start 04/18/16 at 21:00 SHARRON CELESTIN MD Apr 18, 2016 12:11
[2016-04-18] MEDS: ACETAMINOPHEN 325 MG TAB PO PRN (13:14)
[2016-04-18] MEDS: RIVAROXABAN 15 MG TABLET PO SCH (17:25)
[2016-04-18 20:00] VITALS: BP 140/60; RESP 17
[2016-04-18] MEDS: BETAMETHASONE/CLOTRIMAZOLE 15 GM CR TOP SCH (21:14)
[2016-04-18] MEDS: LOSARTAN 25 MG TAB PO SCH (21:14)
[2016-04-18 21:15] VITALS: BP 140/79; PULSE 74; RESP 18
[2016-04-18] MEDS: traMADol 50 MG TAB PO PRN (21:20)
[2016-04-18] MEDS: TEMAZEPAM 15 MG CAP PO PRN (21:20)
[2016-04-19] MEDS: FUROSEMIDE 40 MG TAB PO SCH ×2 (06:42→18:00)
[2016-04-19] MEDS: PANTOPRAZOLE (EC) 40 MG TAB PO SCH ×2 (06:42→18:53)
[2016-04-19] MEDS: LEVOTHYROXINE 100 MCG TAB PO SCH (06:43)
--- NOTE | 2016-04-19 07:44 | PN ---
DATE: 04/18/2016 CARDIOLOGY FOLLOWUP SUBJECTIVE: No new cardiac event. No chest pain or pressure. No palpitation. Breathing has remai albert stable. She has hip pain only when she is exercising. MEDICATIONS: Reviewed. OBJECTIVE: VITAL SIGNS: Temperature 97.7, heart rate of 67, blood pressure 146/60, respiration rate of 20, sat urating 100%. HEENT: Normocephalic, atraumatic. No acute distress. CARDIOVASCULAR: Irregularly irregular. Systolic murmur. PULMONARY: With no wheezes. GASTROINTESTINAL: Soft, nontender. EXTREMITIES: Positive right lower extremity edema. NEUROLOGIC: Awake, alert x3. PSYCHIATRIC: Calm, pleasant. LABORATORY: Sodium 144, potassium 3.8, BUN of 26, creatinine 1.19, glucose 110. ProBNP of 466. ASSESSMENT AND PLAN: 1. Congestive heart failure secondary to diastolic dysfunction, chronic and stable. 2. Atrial fibrillation on heart rate control and anticoagulation 3. History of cerebrovascular accident. 4. Hypertension. 5. Hip fracture with current debility. RECOMMENDATIONS: We will stop the digoxin. Heart rate has been stable and on the low side now. We will continue with diuretics. Anticoagulation will be continued as well. Aldactone will be contin ued. Carvedilol will be continued at the current doses. I will add low dose of losartan as well. Dictated By: AUGUST BALDWIN/MARCO ANTONIO Conf#: [id number] DID#: [id number] CC: JAKE MARCIAL DO;*EndCC*
--- NOTE | 2016-04-19 08:10 | PN ---
DATE: 04/17/2016 CARDIOLOGY FOLLOWUP SUBJECTIVE: Discussed with the staff. Discussed with the patient ____ out. The patient with no ch est pain or pressure. Denies shortness of breath or palpitations to me. She says that she intermit tently gets confused. MEDICATIONS: Reviewed. PHYSICAL EXAMINATION: VITAL SIGNS: Temperature 97.7, heart rate of 62, blood pressure 126/56, respiration rate of 18, sat urating 97% on room air. HEENT: Normocephalic, atraumatic. Pupils are equal. CARDIOVASCULAR: Irregularly irregular. Systolic murmur. PULMONARY: With no wheezes heard. Minimal rhonchi at the base. GASTROINTESTINAL: Soft, nontender. EXTREMITIES: Positive lower extremity edema. NEUROLOGIC: Awake, responds appropriately. PSYCHIATRIC: Calm. LABORATORY: Chest x-ray shows opacification of the lower lung, likely a combination of small pleura l effusions, atelectasis versus infiltrate. Right lung is clear. ASSESSMENT AND PLAN: 1. Atrial fibrillation, chronic, with history of cerebrovascular accident. 2. Hypertension. 3. Congestive heart failure, diastolic dysfunction, chronic, stable now. 4. Renal insufficiency. 5. Anemia, OB positive stool. 6. Status post hip fracture and surgery. RECOMMENDATIONS: I will continue with the current cardiac care. Electrolytes will be checked tomor row and adjusted. Physical therapy and rehab will be continued as tolerated. Dictated By: AUGUST BALDWIN/MARCO ANTONIO Conf#: [id number] DID#: [id number]
[2016-04-19 08:19] VITALS: BP 129/59; RESP 18
--- NOTE | 2016-04-19 08:20 | PN ---
DATE: 04/16/2016 CARDIOLOGY FOLLOWUP SUBJECTIVE: Discussed with the staff. reviewed. No new change. No new cardiac event. No c hest pain or pressure. The patient says she kind of feels like sometimes she gets confused. No ble eding has been reported. Breathing has remained stable overall. MEDICATIONS: Reviewed as per medication reconciliation were personally reviewed. PHYSICAL EXAMINATION VITAL SIGNS: Temperature 97.8, heart rate of 68, blood pressure of 144/73, respiratory rate of 20, saturating 97%. HEAD, EARS, EYES, NOSE, AND THROAT: Normocephalic, atraumatic. Pupils equal and round. CARDIOVASCULAR: . Systolic murmur. PULMONARY: With minimal rhonchi at the base. GASTROINTESTINAL: Soft, nontender. EXTREMITIES: With positive lower extremity edema. NEUROLOGICAL: Awake and alert. Responds appropriately. Oriented to person and place. PSYCHIATRIC: Appears to be calm and pleasant. LABORATORY: Shows WBC of 5, hemoglobin of 8.6, platelets of 122. Sodium 142, potassium 3.8, BUN of 30, creatinine of 1.24, glucose of 91. BNP is 4060. ASSESSMENT AND PLAN 1. Congestive heart failure with diastolic dysfunction, chronic and stable. 2. Atrial fibrillation, currently on anticoagulation. 3. Chronic kidney disease, currently appears to be stable. 4. Hypertension. 5. History of cerebrovascular accident (CVA). 6. History of anxiety. 7. Status post hip fracture and surgery. RECOMMENDATIONS: We will increase the Lasix to 40 b.i.d. We will continue the rest of her cardiac care. Chest x-ray will be checked tomorrow. Continue with physical therapy and rehab as tolerated. Dictated By: AUGUST BALDWIN/MARCO ANTONIO Conf#: [id number] DID#: [id number] CC: JAKE MARCIAL DO;*EndCC*
[2016-04-19 08:44] LABS: BASOPHILS % 0.1 % (0.0-2.0); EOSINOPHILS % 0.7 % (0.0-7.0); HEMATOCRIT 25.8 % (37.0-47.0); HEMOGLOBIN 8.4 g/dl (12.0-16.0); LYMPHOCYTES % 14.4 % (15.0-51.0); MEAN CORPUSCULAR HEMOGLOBIN 26.3 pg (29.0-33.0); MEAN CORPUSCULAR HGB CONC 32.8 g/dl (32.0-37.0); MEAN CORPUSCULAR VOLUME 80.4 fl (82.0-101.0); MEAN PLATELET VOLUME 9.2 fl (7.4-10.4); MONOCYTE # 0.5 10^3/ul (0.3-0.9); MONOCYTES % 7.1 % (0.0-11.0); NEUTROPHIL # 5.5 10^3/ul (1.6-7.5); NEUTROPHILS % 77.7 % (39.0-77.0); PLATELET COUNT 143 10^3/UL (140-440); RED BLOOD COUNT 3.21 10^6/ul (4.20-5.40); RED CELL DISTRIBUTION WIDTH 28.4 % (11.5-14.5); UNCORRECTED WBC 7.1 10^3/ul (4.8-10.8); WHITE BLOOD COUNT 7.1 10^3/ul (4.8-10.8)
[2016-04-19 08:54] LABS: CONDITION 1; LH ANALYZER COMMENTS 1; SUSPECT 1
[2016-04-19 09:02] LABS: POTASSIUM 3.5 mmol/L (3.5-5.1)
[2016-04-19 09:04] LABS: CREATININE 1.29 mg/dl (0.44-1.00)
[2016-04-19 09:05] LABS: CALCIUM 7.5 mg/dl (8.4-10.2); PHOSPHORUS 3.8 mg/dl (2.5-4.9)
[2016-04-19 09:06] LABS: MAGNESIUM 1.5 mg/dl (1.7-2.5)
[2016-04-19] MEDS: SPIRONOLACTONE 25 MG TAB PO SCH ×2 (09:27→18:30)
[2016-04-19] MEDS: ALLOPURINOL 100 MG TAB PO SCH (09:27)
[2016-04-19] MEDS: CALCITRIOL 0.25 MCG CAP PO SCH (09:27)
[2016-04-19] MEDS: FERROUS SULFATE (EC) 325 MG TAB PO SCH ×2 (09:28→18:53)
[2016-04-19] MEDS: ESCITALOPRAM 10 MG TAB PO SCH (09:28)
[2016-04-19] MEDS: ASCORBIC ACID 500 MG TAB PO SCH ×2 (09:28→18:52)
[2016-04-19] MEDS: LOSARTAN 25 MG TAB PO SCH (09:28)
[2016-04-19] MEDS: TAMOXIFEN 10 MG TAB PO SCH (09:31)
[2016-04-19] MEDS: BETAMETHASONE/CLOTRIMAZOLE 15 GM CR TOP SCH ×2 (09:32→20:57)
[2016-04-19] MEDS: MAGNESIUM OXIDE 400 MG TAB PO SCH (10:14)
--- NOTE | 2016-04-19 11:12 | PN ---
DATE: 04/19/2016 SUBJECTIVE: The patient is stable, no acute events overnight. No fevers, chills, nausea, vomiting. OBJECTIVE: VITAL SIGNS: Blood pressure is 120/59, respirations 18, pulse 73, temperature 98.0. HEENT: Head is normocephalic. NECK: Supple. HEART: Regular rate. LUNGS: Show diminished breath sounds at base. ABDOMEN: Soft, nontender to palpation. No rebound or guarding. EXTREMITIES: Negative for clubbing, cyanosis, edema. DERMATOLOGIC: No rashes. MUSCULOSKELETAL: No joint effusions. NEUROLOGIC: No change in exam. MEDICATIONS: The patient's medications have been reviewed. LABORATORY DATA: Showed sodium 141, potassium 3.5, chloride 97, bicarbonate 37, BUN 29, creatinine 1.29, magnesium 1.5. White count 7.1, hemoglobin 8.4, hematocrit 25.8, platelet count is 143. ASSESSMENT AND PLAN: 1. Left hip femoral fracture status post arthroplasty. The patient is currently stable. Continue PT, OT. 2. Acute encephalopathy, etiology toxic metabolic. Mental status improved. Continue to monitor. 3. Chronic kidney disease stage III. The patient's renal function is near baseline. Continue melia tment plan, supportive care, monitor on diuretic therapy. 4. Chronic atrial fibrillation, continue current medical management. 5. Hypertension, controlled. 6. Hypothyroidism. Continue Synthroid. 7. History of gout. Continue allopurinol. 8. Hypomagnesemia. Continue to replete with magnesium oxide. 9. Diastolic heart failure, currently stable. Continue diuretic therapy. Manage with Cardiology. 10. History of breast cancer. The patient is on tamoxifen. 11. Thrombocytopenia. Continue to monitor. 12. Depression. Continue Lexapro. 13. Anemia. Continue to monitor hemoglobin and hematocrit levels. 14. Gastrointestinal and deep venous thrombosis prophylaxis. Continue proton pump inhibitor and Xa relto. Dictated By: JAKE MARCIAL DO NR/NTS Conf#: [id number] DID#: [id number]
--- NOTE | 2016-04-19 11:47 | CONS ---
Date/Time of Note Date/Time of Note DATE: 04/19/16 TIME: 11:46 Consult Date/Type/Reason Admit Date/Time Apr 14, 2016 at 15:51 Type of Consultation: nephro Subjective doing well Objective pulm- cta max assist transfer and ambulation Vital Signs Date Time Temp Pulse Resp B/P Pulse Ox O2 Delivery O2 Flow Rate FiO2 04/19/16 08:19 98.0 83 18 129/59 95 04/19/16 08:00 Nasal Cannula 2.0 Intake and Output 04/18/16 04/18/16 04/19/16 14:59 22:59 06:59 Intake Total 360 ml 550 ml Balance 360 ml 550 ml Results/Medications Result Diagram: 04/19/16 0710 04/19/16 0710 Results 24 hrs Laboratory Tests Test 04/19/16 07:10 Anion Gap 11 Basophils # 0.0 Basophils % 0.1 Blood Morphology Comment Blood Urea Nitrogen 29 H Calcium Level 7.5 L Carbon Dioxide Level 37 H Chloride Level 97 Creatinine 1.29 H Eosinophils # 0.0 Eosinophils % 0.7 Glucose Level 97 Hematocrit 25.8 L Hemoglobin 8.4 L Lymphocytes # 1.0 Lymphocytes % 14.4 L Magnesium Level 1.5 L Mean Corpuscular Hemoglobin 26.3 L Mean Corpuscular Hemoglobin Concent 32.8 Mean Corpuscular Volume 80.4 L Mean Platelet Volume 9.2 Monocytes # 0.5 Monocytes % 7.1 Neutrophils # 5.5 Neutrophils % 77.7 H Nucleated Red Blood Cells # 0.0 Nucleated Red Blood Cells % 0.0 Phosphorus Level 3.8 Platelet Count 143 Potassium Level 3.5 Red Blood Count 3.21 L Red Cell Distribution Width 28.4 H Sodium Level 141 White Blood Count 7.1 # Medications Current Medications Bisacodyl (Dulcolax Supp) 10 mg DAILY PRN [place] CONSTIPATION; Start 04/14/16 at 17 :30 Docusate Sodium (Colace) 100 mg BID PRN PO CONSTIPATION; Start 04/14/16 at 17: 30 Lactulose (Enulose) 20 gm DAILY PRN PO CONSTIPATION; Start 04/14/16 at 17:30 Polyethylene Glycol (Miralax) 17 gm DAILY PRN PO CONSTIPATION; Start 04/14/16 at 17:30 Quetiapine Fumarate (Seroquel) 12.5 mg Q6H PRN PO AGITATION; Start 04/14/16 at 17:30 Acetaminophen/ Hydrocodone Bitart ([place] (5/325)) 1 tab Q4H PRN PO SEVERE PAIN Last administered on 04/17/16 08:40; Admin Dose 1 TAB; Start 04/14/16 at 17:30 Levothyroxine Sodium (Synthroid) 100 mcg DAILY@06 PO Last administered on 06:43; Admin Dose 100 MCG; Start 04/15/16 at 06:00 Pantoprazole (Protonix Tab) 40 mg BID@06,18 PO Last administered on 04/19/16 06:42; Admin Dose 40 MG; Start 04/14/16 at 18:00 Tramadol HCl (Ultram) 50 mg Q6H PRN PO MODERATE PAIN Last administered on 21:20; Admin Dose 50 MG; Start 04/14/16 at 17:30 Acetaminophen (Tylenol Tab) 650 mg Q4H PRN PO PAIN AND OR ELEVATED TEMP Last administered on 04/18/16 13:14; Admin Dose 650 MG; Start 04/14/16 at 18:00 Allopurinol (Zyloprim) 100 mg DAILY PO Last administered on 04/19/16 09:27; Admin Dose 100 MG; Start 04/15/16 at 09:00 Calcitriol (Rocaltrol) 0.25 mcg DAILY PO Last administered on 04/19/16 09:27; Admin Dose 0.25 MCG; Start 04/15/16 at 09:00 Escitalopram Oxalate (Lexapro) 10 mg DAILY PO Last administered on 04/19/16 09 :28; Admin Dose 10 MG; Start 04/15/16 at 09:00 Tamoxifen Citrate (Nolvadex) 20 mg DAILY PO Last administered on 04/19/16 09: 31; Admin Dose 20 MG; Start 04/15/16 at 09:00 Spironolactone (Aldactone) 25 mg DAILY PO Last administered on 04/19/16 09:27 ; Admin Dose 25 MG; Start 04/15/16 at 09:00 Temazepam (Restoril) 30 mg HS PRN PO INSOMNIA Last administered on 04/18/16 21 :20; Admin Dose 30 MG; Start 04/15/16 at 13:00 Betamethasone/ Clotrimazole (Lotrisone Cr) 1 applic BID TOP Last administered on 04/19/16 09:32; Admin Dose 1 APPLIC; Start 04/18/16 at 21:00 Losartan Potassium (Cozaar) 12.5 mg DAILY PO Last administered on 04/19/16 09: 28; Admin Dose 12.5 MG; Start 04/18/16 at 21:00 Magnesium Oxide (Mag-Ox 400) 400 mg DAILY PO Last administered on 04/19/16 10: 14; Admin Dose 400 MG; Start 04/19/16 at 10:00 Assessment/Plan Additional Assessment/Plan Rehab- Left periprosthetic femur fracture, status post ORIF; h.o TKA; Acute toxic metabolic encephalopathy. Continue treatmetn plan Acute pain syndrome. Chronic kidney disease. Hypertension. Hypothyroidism. Depression and anxiety. Anemia. Coronary artery disease. History of atrial fibrillation. SHARRON CELESTIN MD Apr 19, 2016 11:46
[2016-04-19] MEDS ORDERED: MAGNESIUM SULFATE 3 GM in SOD CHLORIDE 0.9% 100 ML IVPB ONE (14:00)
--- NOTE | 2016-04-19 15:56 | PN ---
DATE: 04/19/2016 CARDIOLOGY FOLLOWUP SUBJECTIVE: No new cardiac event. No chest pain or pressure. No palpitations. Denies any active bleeding. Breathing has remained stable. MEDICATIONS: Reviewed. PHYSICAL EXAMINATION: VITAL SIGNS: Temperature 98, heart rate of 83, blood pressure 129/59, respiration rate of 18 Normoc ephalic, atraumatic: No acute distress. Pupils equal and round. CARDIOVASCULAR: Irregularly irregular. Systolic murmur. PULMONARY: With no wheezes heard now, no rhonchi. GASTROINTESTINAL: Soft, nontender. EXTREMITIES: Positive right lower extremity edema. NEUROLOGIC: Awake and alert, responds appropriately. PSYCHIATRIC: Appears to be calm and pleasant. LABORATORY: WBC of 7.1, hemoglobin 8.4, platelet 143. Sodium 141, potassium 3.5, BUN of 29, creati nine 1.29, glucose of 97. Magnesium is 1.5. ASSESSMENT AND PLAN: 1. Congestive heart failure. 2. Atrial fibrillation. 3. History of cerebrovascular accident. 4. Status post hip fracture. 5. Debility. 6. Encephalopathy has improved. 7. Hypertension. 8. Anxiety. RECOMMENDATIONS: Will correct the electrolytes including potassium and magnesium. I will give the patient more magnesium. I will also start him on Aldactone. Lasix will be continued. We will cont inue with the ARB as tolerated. Continue with physical therapy and rehabilitation. Dictated By: AUGUST BALDWIN/MARCO ANTONIO Conf#: [id number] ALBERT#: [id number] CC: JAKE MARCIAL DO;*EndCC*
[2016-04-19 17:37] VITALS: BP 120/62; PULSE 75; RESP 18
[2016-04-19] MEDS: RIVAROXABAN 15 MG TABLET PO SCH (18:52)
[2016-04-19] MEDS ORDERED: MAGNESIUM OXIDE 400 MG TAB PO ONE ×2 (19:00→23:00)
[2016-04-19 20:10] VITALS: BP 101/56; RESP 19
[2016-04-20] MEDS: HYDROCODONE/APAP (5/325) TAB PO PRN ×3 (04:26→16:00)
[2016-04-20] MEDS: LEVOTHYROXINE 100 MCG TAB PO SCH (06:57)
[2016-04-20] MEDS: FUROSEMIDE 40 MG TAB PO SCH ×2 (06:57→18:00)
[2016-04-20] MEDS: PANTOPRAZOLE (EC) 40 MG TAB PO SCH ×2 (06:57→18:18)
[2016-04-20 07:37] VITALS: BP 121/58; RESP 18
[2016-04-20] MEDS ORDERED: MAGNESIUM OXIDE 400 MG TAB PO ONE ×4 (09:00→18:00)
[2016-04-20] MEDS: BETAMETHASONE/CLOTRIMAZOLE 15 GM CR TOP SCH ×2 (09:00→20:26)
[2016-04-20] MEDS: ALLOPURINOL 100 MG TAB PO SCH (09:46)
[2016-04-20] MEDS: ESCITALOPRAM 10 MG TAB PO SCH (09:46)
[2016-04-20] MEDS: CALCITRIOL 0.25 MCG CAP PO SCH (09:46)
[2016-04-20] MEDS: LOSARTAN 25 MG TAB PO SCH (09:48)
[2016-04-20] MEDS: FERROUS SULFATE (EC) 325 MG TAB PO SCH ×2 (09:54→18:19)
[2016-04-20] MEDS: ASCORBIC ACID 500 MG TAB PO SCH ×2 (09:54→18:18)
[2016-04-20] MEDS: SPIRONOLACTONE 25 MG TAB PO SCH (09:55)
[2016-04-20] MEDS: MAGNESIUM OXIDE 400 MG TAB PO SCH (09:55)
[2016-04-20] MEDS: TAMOXIFEN 10 MG TAB PO SCH (09:56)
--- NOTE | 2016-04-20 10:35 | PN ---
DATE: 04/20/2016 CARDIOLOGY FOLLOWUP PROGRESS NOTE SUBJECTIVE: No new cardiac event. No chest pain or pressure. The breathing has remained stable. Denies any PND, orthopnea to me. MEDICATIONS: Reviewed. PHYSICAL EXAMINATION: VITAL SIGNS: Temperature 98.6, heart rate 75, blood pressure 121/58, respiration rate of 18. Satur ating 96%. HEENT: Normocephalic, atraumatic. CARDIOVASCULAR: Irregularly irregular. Systolic murmur. PULMONARY: With no wheezes anteriorly. GASTROINTESTINAL: Soft, nontender. EXTREMITIES: . NEUROLOGIC: Awake, responds appropriately. PSYCHIATRIC: Appears to be calm and pleasant. ASSESSMENT AND PLAN: 1. Atrial fibrillation with congestive heart failure. 2. Hip fracture status post surgery. 3. History of cerebrovascular accident. 4. Hypertension. 5. Chronic kidney disease. RECOMMENDATIONS: We will continue with the current cardiac care. Diuretics will be continued and A RB as tolerated, they will be continued as well. Dictated By: AUGUST BALDWIN/MARCO ANTONIO Conf#: [id number] DID#: [id number] CC: JAKE MARCIAL DO;*EndCC*
--- NOTE | 2016-04-20 10:42 | PN ---
DATE: 04/20/2016 SUBJECTIVE: The patient is stable, still requires full assistance with physical therapy. Patient i s afraid of falling again which she states is limiting some of her ability to participate. No other acute events noted. OBJECTIVE: VITAL SIGNS: Blood pressure 121/58, respiration 18, pulse 75, temperature 98.6. HEENT: Head is normocephalic. NECK: Supple. HEART: Regular rate. LUNGS: Show diminished breath sounds at base. ABDOMEN: Soft, nontender to palpation. No rebound or guarding. EXTREMITIES: Negative for clubbing, cyanosis, no edema. DERMATOLOGIC: No rashes. MUSCULOSKELETAL: No joint effusions. NEUROLOGIC: No change in exam. MEDICATIONS: Have been reviewed. LABORATORY DATA: Has been reviewed. No new labs. ASSESSMENT AND PLAN: 1. Left hip femoral fracture. Status post arthroplasty. Continue physical therapy. 2. Encephalopathy, etiology toxic metabolic. The patient's mental status improved. Continue to mo nitor. 3. Chronic kidney disease, stage III. Renal functions near baseline. Continue current treatment p da, supportive care. 4. Chronic kidney failure, stable. Continue current medical management. Follow up with cardiology . 5. Hypertension, controlled. 6. Hypothyroidism. Continue Synthroid. 7. History of gout. Continue allopurinol. 8. Hypomagnesemia. Continue to replete. Continue magnesium oxide. 9. Diastolic heart failure, currently stable. Continue diuretic therapy. 10. History of breast cancer. Continue tamoxifen. 11. Thrombocytopenia, improved. 12. Depression. Continue Lexapro. 13. Anemia. Continue to monitor hemoglobin and hematocrit levels. 14. Gastrointestinal and deep venous thrombosis prophylaxis. Continue proton pump inhibitor and Xa relto. Dictated By: JAKE OLIVO/MARCO ANTONIO Conf#: [id number] DID#: [id number]
--- NOTE | 2016-04-20 10:51 | CONS ---
Date/Time of Note Date/Time of Note DATE: 04/20/16 TIME: 10:49 Consult Date/Type/Reason Admit Date/Time Apr 14, 2016 at 15:51 Type of Consultation: nephro Subjective Comfortable Objective Vital Signs Date Time Temp Pulse Resp B/P Pulse Ox O2 Delivery O2 Flow Rate FiO2 04/20/16 07:37 98.6 75 18 121/58 96 04/19/16 20:00 Nasal Cannula 2.0 Intake and Output 04/19/16 04/19/16 04/20/16 15:00 23:00 07:00 Intake Total 600 ml 240 ml 400 ml Output Total 100 ml Balance 500 ml 240 ml 400 ml pulm- CTA mod/max transfer Results/Medications Result Diagram: 04/19/16 0710 04/19/16 0710 Medications Current Medications Bisacodyl (Dulcolax Supp) 10 mg DAILY PRN [place] CONSTIPATION; Start 04/14/16 at 17 :30 Docusate Sodium (Colace) 100 mg BID PRN PO CONSTIPATION; Start 04/14/16 at 17: 30 Lactulose (Enulose) 20 gm DAILY PRN PO CONSTIPATION; Start 04/14/16 at 17:30 Polyethylene Glycol (Miralax) 17 gm DAILY PRN PO CONSTIPATION; Start 04/14/16 at 17:30 Quetiapine Fumarate (Seroquel) 12.5 mg Q6H PRN PO AGITATION; Start 04/14/16 at 17:30 Acetaminophen/ Hydrocodone Bitart ([place] (5/325)) 1 tab Q4H PRN PO SEVERE PAIN Last administered on 04/20/16 09:47; Admin Dose 1 TAB; Start 04/14/16 at 17:30 Levothyroxine Sodium (Synthroid) 100 mcg DAILY@06 PO Last administered on 06:57; Admin Dose 100 MCG; Start 04/15/16 at 06:00 Pantoprazole (Protonix Tab) 40 mg BID@06,18 PO Last administered on 04/20/16 06:57; Admin Dose 40 MG; Start 04/14/16 at 18:00 Tramadol HCl (Ultram) 50 mg Q6H PRN PO MODERATE PAIN Last administered on 21:20; Admin Dose 50 MG; Start 04/14/16 at 17:30 Acetaminophen (Tylenol Tab) 650 mg Q4H PRN PO PAIN AND OR ELEVATED TEMP Last administered on 04/18/16 13:14; Admin Dose 650 MG; Start 04/14/16 at 18:00 Allopurinol (Zyloprim) 100 mg DAILY PO Last administered on 04/20/16 09:46; Admin Dose 100 MG; Start 04/15/16 at 09:00 Calcitriol (Rocaltrol) 0.25 mcg DAILY PO Last administered on 04/20/16 09:46; Admin Dose 0.25 MCG; Start 04/15/16 at 09:00 Escitalopram Oxalate (Lexapro) 10 mg DAILY PO Last administered on 04/20/16 09 :46; Admin Dose 10 MG; Start 04/15/16 at 09:00 Tamoxifen Citrate (Nolvadex) 20 mg DAILY PO Last administered on 04/20/16 09: 56; Admin Dose 20 MG; Start 04/15/16 at 09:00 Temazepam (Restoril) 30 mg HS PRN PO INSOMNIA Last administered on 04/18/16 21 :20; Admin Dose 30 MG; Start 04/15/16 at 13:00 Betamethasone/ Clotrimazole (Lotrisone Cr) 1 applic BID TOP Last administered on 04/19/16 20:57; Admin Dose 1 APPLIC; Start 04/18/16 at 21:00 Losartan Potassium (Cozaar) 12.5 mg DAILY PO Last administered on 04/20/16 09: 48; Admin Dose 12.5 MG; Start 04/18/16 at 21:00 Magnesium Oxide (Mag-Ox 400) 400 mg DAILY PO Last administered on 04/20/16 09: 55; Admin Dose 400 MG; Start 04/19/16 at 10:00 Spironolactone (Aldactone) 25 mg DAILY PO Last administered on 04/20/16 09:55 ; Admin Dose 25 MG; Start 04/19/16 at 14:00 Magnesium Oxide (Mag-Ox 400) 400 mg ONCE ONCE PO Last administered on 09:47; Admin Dose 400 MG; Start 04/20/16 at 12:00; Stop 04/20/16 at 12:01 Magnesium Oxide (Mag-Ox 400) 400 mg ONCE ONCE PO ; Start 04/20/16 at 18:00; Stop 04/20/16 at 18:01 Assessment/Plan Additional Assessment/Plan Rehab- Left periprosthetic femur fracture, status post ORIF; h.o TKA; Acute toxic metabolic encephalopathy. Increase activities as tolerated Acute pain syndrome. Chronic kidney disease. Hypertension. Hypothyroidism. Depression and anxiety. Anemia. Coronary artery disease. History of atrial fibrillation. SHARRON CELESTIN MD Apr 20, 2016 10:51
[2016-04-20] MEDS: RIVAROXABAN 15 MG TABLET PO SCH (18:18)
[2016-04-20 20:00] VITALS: BP 117/56; PULSE 72; RESP 72
[2016-04-20] MEDS: TEMAZEPAM 15 MG CAP PO PRN (21:49)
--- NOTE | 2016-04-20 22:06 | CONS ---
DATE OF ADMISSION: 04/14/2016 DATE OF CONSULTATION: 04/20/2016 TYPE OF CONSULTATION: Psychological CONSULTING PSYCHOLOGIST: Maeve Ventura, PhD REASON FOR CONSULTATION: This consultation was requested by Dr. Nghia Mcknight in order to evaluate the cognitive and emotional functioning of this patient related to her present medical condition. HISTORY OF PRESENT ILLNESS: The patient is an 86-year-old female. The patient has a history of numerous medical problems including coronary artery disease, chronic kidney disease, hypertension, and history of CVA. The patient has had recent problems with balance and had a fall, which showed a distal left humeral fracture. The patient was cleared medically and then sent to the acute rehabilitation unit for acute multidisciplinary rehabilitation. The patient is motivated to get better. The patient is frustrated about the process. The patient is working to do as well as she can to regain her previous level of functioning. The patient's daughter was present with the patient's permission and the patient's daughter said that prior to her fall, she was actually functioning quite well for her age. FAMILY AND SOCIAL HISTORY: The patient lives with her daughter. They live in an apartment with no steps. The patient wants to return there after discharge. MEDICATIONS: The patient is currently on: 1. Lexapro 10 mg daily. 2. Restoril 30 mg at bedtime p.r.n. SUBSTANCE ABUSE: This patient reports no use of alcohol or other drugs. The patient reports that she does not smoke. MENTAL STATUS EXAMINATION: APPEARANCE: The patient was seen in her wheelchair. She appears to be of average height and weight. The patient is right-handed. BEHAVIOR: The patient was cooperative during the consultation. The patient did attempt to answer all questions presented to her by the interviewer. The patient did say that she still felt a little confused by the anesthesia and pain medications that she was receiving. The patient's daughter also corroborated this. MOOD AND AFFECT: The patient's mood appeared to be slightly depressed. Affect did appear to be slightly anxious. PERCEPTION: The patient reports no hallucinations or delusions. The patient was alert to person, place, situation, and time. She was a little confused, but was able to actually name the hospital, but had to look on the wall to get that answer. MEMORY AND COGNITION: The patient's memory and cognition are basically intact. She is having a little bit of problems and it is likely resulting from some of the medication she is taking and her anesthesia. The patient was able to say the month and the year. The patient was unable to say who the President of [facility]. She was able to say Jc, but she could not say his full name. The patient was able to say the month and year. The patient was able to say the name of the hospital with some prompting and looking at the wall. The patient was able to say her correct age and give her birthdate as well as her address. The patient was unable to spell "world" backwards. The patient was unable to do serial 7 subtractions from 100. Overall, the patient's cognitions are just slightly impaired. INTELLIGENCE: Intelligence appears to fall in the average range. INSIGHT: Fair. JUDGMENT: Fair. THOUGHT CONTENT: The patient is concerned about her present medical condition. The patient is frustrated. The patient also said she is annoyed about what happened. The patient is motivated to get better. The patient is aware that she has some slight level of confusion. 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 Thank you very much, Dr. Nghia Mcknight, for referring this individual. Please do not hesitate to call if you have additional questions. Dictated By: MAEVE VENTURA PHD ELIAZAR/MARCO ANTONIO Conf#: [id number] DID#: [id number] CC: SHARRON MCKNIGHT MD;*EndCC* MTDD
[2016-04-21] MEDS: PANTOPRAZOLE (EC) 40 MG TAB PO SCH ×2 (05:48→17:44)
[2016-04-21 05:49] VITALS: BP 123/50; PULSE 68
[2016-04-21] MEDS: LEVOTHYROXINE 100 MCG TAB PO SCH (05:49)
[2016-04-21] MEDS: FUROSEMIDE 40 MG TAB PO SCH ×2 (05:49→17:44)
[2016-04-21 07:30] VITALS: BP 142/71; RESP 20
[2016-04-21] MEDS: BETAMETHASONE/CLOTRIMAZOLE 15 GM CR TOP SCH ×2 (09:00→21:48)
[2016-04-21] MEDS: ASCORBIC ACID 500 MG TAB PO SCH ×2 (09:50→17:45)
[2016-04-21] MEDS: FERROUS SULFATE (EC) 325 MG TAB PO SCH ×2 (09:50→17:45)
[2016-04-21] MEDS: SPIRONOLACTONE 25 MG TAB PO SCH (09:51)
[2016-04-21] MEDS: HYDROCODONE/APAP (5/325) TAB PO PRN (09:51)
[2016-04-21] MEDS: MAGNESIUM OXIDE 400 MG TAB PO SCH (09:51)
[2016-04-21] MEDS: ESCITALOPRAM 10 MG TAB PO SCH (09:51)
[2016-04-21] MEDS: ALLOPURINOL 100 MG TAB PO SCH (09:52)
[2016-04-21] MEDS: LOSARTAN 25 MG TAB PO SCH (09:52)
[2016-04-21] MEDS: CALCITRIOL 0.25 MCG CAP PO SCH (09:52)
[2016-04-21] MEDS: TAMOXIFEN 10 MG TAB PO SCH (09:53)
--- NOTE | 2016-04-21 10:46 | PN ---
DATE: 04/21/2016 CARDIOLOGY FOLLOWUP SUBJECTIVE: No new cardiac event. No chest pain or pressure, no palpitations, is feeling better. MEDICATIONS: Reviewed. PHYSICAL EXAMINATION: VITAL SIGNS: Temperature 98.7, heart rate of 68, blood pressure 123/50, respiration rate of 18, sat urating 98%. HEENT: Normocephalic, atraumatic. No acute distress. Pupils equal, round. CARDIOVASCULAR: Irregularly irregular. Systolic murmur. PULMONARY: With no wheezes. GASTROINTESTINAL: Soft, nontender. EXTREMITIES: With trivial edema. NEUROLOGIC: Awake, responds appropriately. PSYCHIATRIC: Appears to be calm and pleasant. ASSESSMENT AND PLAN: 1. Atrial fibrillation, chronic. 2. Congestive heart failure, stable. 3. Debility, needs rehab. 4. Hypertension, under good control. 5. History of severe anticoagulation. Dictated By: AUGUST HOUSE MD AV/MARCO ANTONIO Conf#: [id number] DID#: [id number] CC: JAKE MARCIAL DO;*EndCC*
--- NOTE | 2016-04-21 11:40 | PN ---
DATE: 04/21/2016 SUBJECTIVE: The patient is stable. No acute events overnight. OBJECTIVE: VITAL SIGNS: Blood pressure 123/60, pulse 72, respiration 14, temperature 98.7. HEENT: Head is normocephalic. NECK: Supple. HEART: Regular rate. LUNGS: Show diminished breath sounds at base. ABDOMEN: Soft, nontender to palpation. No rebound or guarding. EXTREMITIES: Negative for clubbing, cyanosis, edema. DERMATOLOGIC: No rashes. MUSCULOSKELETAL: No joint effusions. NEUROLOGIC: No change in exam. MEDICATIONS: Have been reviewed. LABORATORY DATA: Has been reviewed. No new labs. ASSESSMENT AND PLAN: 1. Left humeral fracture. The patient is status post arthroplasty. Continue physical therapy. St aples removed. 2. Encephalopathy, etiology is toxic metabolic. Mental status is improving near back to baseline. 3. Chronic kidney disease, stage III. Renal function is at baseline. Continue supportive care, re gregorio dose all meds. 4. Hypertension, controlled. 5. Hypothyroidism. Continue Synthroid. 6. History of gout. Continue allopurinol. 7. Hypomagnesemia. Continue to monitor and replete. 8. Diastolic heart failure, currently stable. Continue medical management. 9. History of breast cancer. Continue tamoxifen. 10. Depression. Continue Lexapro 11. Anemia, continue to monitor hemoglobin and hematocrit levels. 12. Gastrointestinal and deep venous thrombosis prophylaxis. Continue proton pump inhibitors and X arelto. Dictated By: JAKE OLIVO/NTS Conf#: [id number] DID#: [id number]
--- NOTE | 2016-04-21 12:47 | CONS ---
Date/Time of Note Date/Time of Note DATE: 04/21/16 TIME: 12:45 Consult Date/Type/Reason Admit Date/Time Apr 14, 2016 at 15:51 Type of Consultation: nephro Subjective comfortable Objective Vital Signs Date Time Temp Pulse Resp B/P Pulse Ox O2 Delivery O2 Flow Rate FiO2 04/21/16 05:49 68 123/50 04/20/16 23:00 98.7 04/20/16 20:00 Nasal Cannula 2.0 04/20/16 20:00 72 98 Intake and Output 04/20/16 04/20/16 04/21/16 14:59 22:59 06:59 Intake Total 480 ml 240 ml 400 ml Balance 480 ml 240 ml 400 ml pulm- cta mod/max assist transfer Results/Medications Result Diagram: 04/19/16 0710 04/19/16 0710 Medications Current Medications Bisacodyl (Dulcolax Supp) 10 mg DAILY PRN [place] CONSTIPATION; Start 04/14/16 at 17 :30 Docusate Sodium (Colace) 100 mg BID PRN PO CONSTIPATION; Start 04/14/16 at 17: 30 Lactulose (Enulose) 20 gm DAILY PRN PO CONSTIPATION; Start 04/14/16 at 17:30 Polyethylene Glycol (Miralax) 17 gm DAILY PRN PO CONSTIPATION; Start 04/14/16 at 17:30 Quetiapine Fumarate (Seroquel) 12.5 mg Q6H PRN PO AGITATION; Start 04/14/16 at 17:30 Acetaminophen/ Hydrocodone Bitart ([place] (5/325)) 1 tab Q4H PRN PO SEVERE PAIN Last administered on 04/21/16 09:51; Admin Dose 1 TAB; Start 04/14/16 at 17:30 Levothyroxine Sodium (Synthroid) 100 mcg DAILY@06 PO Last administered on 05:49; Admin Dose 100 MCG; Start 04/15/16 at 06:00 Pantoprazole (Protonix Tab) 40 mg BID@,18 PO Last administered on 04/21/16 05:48; Admin Dose 40 MG; Start 04/14/16 at 18:00 Tramadol HCl (Ultram) 50 mg Q6H PRN PO MODERATE PAIN Last administered on 21:20; Admin Dose 50 MG; Start 04/14/16 at 17:30 Acetaminophen (Tylenol Tab) 650 mg Q4H PRN PO PAIN AND OR ELEVATED TEMP Last administered on 04/18/16 13:14; Admin Dose 650 MG; Start 04/14/16 at 18:00 Allopurinol (Zyloprim) 100 mg DAILY PO Last administered on 04/21/16 09:52; Admin Dose 100 MG; Start 04/15/16 at 09:00 Calcitriol (Rocaltrol) 0.25 mcg DAILY PO Last administered on 04/21/16 09:52; Admin Dose 0.25 MCG; Start 04/15/16 at 09:00 Escitalopram Oxalate (Lexapro) 10 mg DAILY PO Last administered on 04/21/16 09 :51; Admin Dose 10 MG; Start 04/15/16 at 09:00 Tamoxifen Citrate (Nolvadex) 20 mg DAILY PO Last administered on 04/21/16 09: 53; Admin Dose 20 MG; Start 04/15/16 at 09:00 Temazepam (Restoril) 30 mg HS PRN PO INSOMNIA Last administered on 04/20/16 21 :49; Admin Dose 30 MG; Start 04/15/16 at 13:00 Betamethasone/ Clotrimazole (Lotrisone Cr) 1 applic BID TOP Last administered on 04/21/16 09:00; Admin Dose 1 APPLIC; Start 04/18/16 at 21:00 Losartan Potassium (Cozaar) 12.5 mg DAILY PO Last administered on 04/21/16 09: 52; Admin Dose 12.5 MG; Start 04/18/16 at 21:00 Magnesium Oxide (Mag-Ox 400) 400 mg DAILY PO Last administered on 04/21/16 09: 51; Admin Dose 400 MG; Start 04/19/16 at 10:00 Spironolactone (Aldactone) 25 mg DAILY PO Last administered on 04/21/16 09:51 ; Admin Dose 25 MG; Start 04/19/16 at 14:00 Assessment/Plan Additional Assessment/Plan Rehab- L distal periprosthetic femur fx; h.o. L TKA Continue rehab activities LBP CKD CAD h.o. breast ca SHARRON CELESTIN MD Apr 21, 2016 12:47
[2016-04-21 17:42] VITALS: BP 126/58; PULSE 85; RESP 18
[2016-04-21] MEDS: RIVAROXABAN 15 MG TABLET PO SCH (17:44)
[2016-04-21 20:44] VITALS: BP 102/56; RESP 18
[2016-04-22] MEDS: PANTOPRAZOLE (EC) 40 MG TAB PO SCH ×2 (05:18→17:42)
[2016-04-22] MEDS: LEVOTHYROXINE 100 MCG TAB PO SCH (05:18)
[2016-04-22] MEDS: FUROSEMIDE 40 MG TAB PO SCH ×2 (05:22→17:43)
[2016-04-22 05:23] VITALS: BP 172/72; PULSE 87
[2016-04-22 07:37] VITALS: BP 141/87; RESP 18
[2016-04-22] MEDS: FERROUS SULFATE (EC) 325 MG TAB PO SCH ×2 (08:40→17:50)
[2016-04-22] MEDS: ASCORBIC ACID 500 MG TAB PO SCH ×2 (08:40→17:50)
[2016-04-22] MEDS: SPIRONOLACTONE 25 MG TAB PO SCH (08:42)
[2016-04-22] MEDS: ALLOPURINOL 100 MG TAB PO SCH (08:42)
[2016-04-22] MEDS: MAGNESIUM OXIDE 400 MG TAB PO SCH (08:42)
[2016-04-22] MEDS: CALCITRIOL 0.25 MCG CAP PO SCH (08:42)
[2016-04-22] MEDS: ESCITALOPRAM 10 MG TAB PO SCH (08:43)
[2016-04-22] MEDS: LOSARTAN 25 MG TAB PO SCH (08:43)
[2016-04-22] MEDS: TAMOXIFEN 10 MG TAB PO SCH (08:48)
[2016-04-22] MEDS: BETAMETHASONE/CLOTRIMAZOLE 15 GM CR TOP SCH ×2 (08:49→20:59)
--- NOTE | 2016-04-22 10:39 | PN ---
DATE: 04/22/2016 SUBJECTIVE: The patient is lethargic this morning, but arousable. The patient is in no distress. No hemoptysis or hematemesis. No other events noted overnight. OBJECTIVE: VITAL SIGNS: Blood pressure 141/87, respirations 18, pulse 77, temperature 98.0. HEENT: Head is normocephalic. NECK: Supple. HEART: Regular rate. LUNGS: Showed diminished breath sounds at the base. ABDOMEN: Soft, nontender to palpation. No rebound or guarding. EXTREMITIES: Negative for clubbing or cyanosis. No edema. DERMATOLOGIC: No rashes. MUSCULOSKELETAL: Have no joint effusion. NEUROLOGIC: No change in exam. MEDICATIONS: The patient's medication have been reviewed. LABORATORY DATA: Has been reviewed. No new labs. ASSESSMENT AND PLAN: 1. Left femoral fracture/left hip fracture. The patient is status post arthroplasty. Continue phy sical therapy. 2. Chronic kidney disease stage III. Renal function has been stable. Continue supportive care, re gregorio dose all medications. 3. Hypertension. Controlled. Continue the current medical management. 4. Hypothyroidism. Continue Synthroid. 5. History of gout. Continue allopurinol. 6. Hypermagnesemia. Continue to monitor and replete. 7. Diastolic heart failure. Currently stable. Continue medical management. 8. History of breast cancer. Continue tamoxifen. 9. Depression. Continue Lexapro. 10. Encephalopathy. Etiology is toxic metabolic. Mental status has been improving. 11. Anemia. Continue to monitor hemoglobin and hematocrit levels. 12. Atrial fibrillation. Currently rate controlled. Continue medical management. Continue Coreg and Xarelto. Dictated By: JAKE OLIVO/MARCO ANTONIO Conf#: [id number] DID#: [id number]
--- NOTE | 2016-04-22 11:03 | CONS ---
Date/Time of Note Date/Time of Note DATE: 04/22/16 TIME: 11:00 Consult Date/Type/Reason Admit Date/Time Apr 14, 2016 at 15:51 Type of Consultation: nephro Subjective needs encouragement for activities Objective pulm- cta max assist transfer Vital Signs Date Time Temp Pulse Resp B/P Pulse Ox O2 Delivery O2 Flow Rate FiO2 04/22/16 07:37 98.0 97 18 141/87 98 04/21/16 20:00 Nasal Cannula 2.0 Intake and Output 04/21/16 04/21/16 04/22/16 15:00 23:00 07:00 Intake Total 240 ml 440 ml Balance 240 ml 440 ml Results/Medications Result Diagram: 04/19/1610 04/19/16 0710 Medications Current Medications Bisacodyl (Dulcolax Supp) 10 mg DAILY PRN [place] CONSTIPATION; Start 04/14/16 at 17 :30 Docusate Sodium (Colace) 100 mg BID PRN PO CONSTIPATION; Start 04/14/16 at 17: 30 Lactulose (Enulose) 20 gm DAILY PRN PO CONSTIPATION; Start 04/14/16 at 17:30 Polyethylene Glycol (Miralax) 17 gm DAILY PRN PO CONSTIPATION; Start 04/14/16 at 17:30 Quetiapine Fumarate (Seroquel) 12.5 mg Q6H PRN PO AGITATION; Start 04/14/16 at 17:30 Acetaminophen/ Hydrocodone Bitart ([place] (5/325)) 1 tab Q4H PRN PO SEVERE PAIN Last administered on 04/21/16 09:51; Admin Dose 1 TAB; Start 04/14/16 at 17:30 Levothyroxine Sodium (Synthroid) 100 mcg DAILY@06 PO Last administered on 05:18; Admin Dose 100 MCG; Start 04/15/16 at 06:00 Pantoprazole (Protonix Tab) 40 mg BID@,18 PO Last administered on 04/22/16 05:18; Admin Dose 40 MG; Start 04/14/16 at 18:00 Tramadol HCl (Ultram) 50 mg Q6H PRN PO MODERATE PAIN Last administered on 21:20; Admin Dose 50 MG; Start 04/14/16 at 17:30 Acetaminophen (Tylenol Tab) 650 mg Q4H PRN PO PAIN AND OR ELEVATED TEMP Last administered on 04/18/16 13:14; Admin Dose 650 MG; Start 04/14/16 at 18:00 Allopurinol (Zyloprim) 100 mg DAILY PO Last administered on 04/22/16 08:42; Admin Dose 100 MG; Start 04/15/16 at 09:00 Calcitriol (Rocaltrol) 0.25 mcg DAILY PO Last administered on 04/22/16 08:42; Admin Dose 0.25 MCG; Start 04/15/16 at 09:00 Escitalopram Oxalate (Lexapro) 10 mg DAILY PO Last administered on 04/22/16 08 :43; Admin Dose 10 MG; Start 04/15/16 at 09:00 Tamoxifen Citrate (Nolvadex) 20 mg DAILY PO Last administered on 04/22/16 08: 48; Admin Dose 20 MG; Start 04/15/16 at 09:00 Temazepam (Restoril) 30 mg HS PRN PO INSOMNIA Last administered on 04/20/16 21 :49; Admin Dose 30 MG; Start 04/15/16 at 13:00 Betamethasone/ Clotrimazole (Lotrisone Cr) 1 applic BID TOP Last administered on 04/22/16 08:49; Admin Dose 1 APPLIC; Start 04/18/16 at 21:00 Losartan Potassium (Cozaar) 12.5 mg DAILY PO Last administered on 04/22/16 08: 43; Admin Dose 12.5 MG; Start 04/18/16 at 21:00 Magnesium Oxide (Mag-Ox 400) 400 mg DAILY PO Last administered on 04/22/16 08: 42; Admin Dose 400 MG; Start 04/19/16 at 10:00 Spironolactone (Aldactone) 25 mg DAILY PO Last administered on 04/22/16 08:42 ; Admin Dose 25 MG; Start 04/19/16 at 14:00 Assessment/Plan Additional Assessment/Plan Rehab- L distal periprosthetic femur fx; h.o. L TKA Continue therapies with encouragement LBP CKD CAD h.o. breast ca SHARRON CELESTIN MD Apr 22, 2016 11:03
[2016-04-22] MEDS: RIVAROXABAN 15 MG TABLET PO SCH (17:43)
[2016-04-22 20:00] VITALS: BP 136/58; RESP 18
--- NOTE | 2016-04-22 20:21 | PN ---
DATE: 04/22/2016 CARDIOLOGY FOLLOWUP SUBJECTIVE: Discussed with the staff. The patient with no chest pain or pressure. No palpitation. Breathing has remained stable. MEDICATIONS: Reviewed. PHYSICAL EXAMINATION: VITAL SIGNS: Temperature 98, heart rate of 97, blood pressure 140/87, respiration rate of 18, satur ating 98%. HEENT: Normocephalic, atraumatic. No acute distress. Pupils are equal. CARDIOVASCULAR: Irregularly irregular. PULMONARY: No wheezes heard. GASTROINTESTINAL: Soft. EXTREMITIES: Moderate lower extremity edema. NEUROLOGIC: Awake, responds appropriately. PSYCHIATRIC: Appears to be calm and pleasant. ASSESSMENT AND PLAN: 1. Congestive heart failure, currently stable. 2. Atrial fibrillation, chronic. 3. History of cerebrovascular accident. 4. Status post hip fracture surgery. 5. Hypertension. RECOMMENDATIONS: We will continue with the current cardiac care. Continue physical therapy and [place] abilitation. Dictated By: AUGUST HOUSE MD AV/MARCO ANTONIO Conf#: [id number] DID#: [id number] CC: SHARRON CELESTIN MD; JAKE MARCIAL DO;*EndCC*
[2016-04-23] MEDS: PANTOPRAZOLE (EC) 40 MG TAB PO SCH ×2 (06:35→18:00)
[2016-04-23] MEDS: FUROSEMIDE 40 MG TAB PO SCH ×2 (06:35→18:00)
[2016-04-23] MEDS: LEVOTHYROXINE 100 MCG TAB PO SCH (06:35)
[2016-04-23 07:30] VITALS: BP 142/63; RESP 20
[2016-04-23 07:35] LABS: EOSINOPHILS # 0.1 10^3/ul (0.0-0.5); EOSINOPHILS % 2.2 % (0.0-7.0); HEMATOCRIT 26.5 % (37.0-47.0); HEMOGLOBIN 8.8 g/dl (12.0-16.0); LYMPHOCYTES # 0.8 10^3/ul (0.8-2.9); LYMPHOCYTES % 17.4 % (15.0-51.0); MEAN CORPUSCULAR HEMOGLOBIN 26.7 pg (29.0-33.0); MEAN CORPUSCULAR HGB CONC 33.3 g/dl (32.0-37.0); MEAN CORPUSCULAR VOLUME 80.1 fl (82.0-101.0); MEAN PLATELET VOLUME 9.7 fl (7.4-10.4); MONOCYTE # 0.3 10^3/ul (0.3-0.9); MONOCYTES % 6.5 % (0.0-11.0); NEUTROPHIL # 3.6 10^3/ul (1.6-7.5); NEUTROPHILS % 73.9 % (39.0-77.0); PLATELET COUNT 146 10^3/UL (140-440); RED BLOOD COUNT 3.31 10^6/ul (4.20-5.40); RED CELL DISTRIBUTION WIDTH 28.6 % (11.5-14.5); UNCORRECTED WBC 4.8 10^3/ul (4.8-10.8); WHITE BLOOD COUNT 4.8 10^3/ul (4.8-10.8)
[2016-04-23] MEDS: ASCORBIC ACID 500 MG TAB PO SCH ×2 (07:35→18:03)
[2016-04-23 07:43] LABS: CONDITION 1; LH ANALYZER COMMENTS 1; SUSPECT 1
[2016-04-23 08:00] VITALS: BP 125/60; PULSE 78; RESP 18
[2016-04-23 08:03] LABS: CREATININE 1.47 mg/dl (0.44-1.00)
[2016-04-23 08:04] LABS: CALCIUM 7.7 mg/dl (8.4-10.2); PHOSPHORUS 3.8 mg/dl (2.5-4.9)
[2016-04-23 08:05] LABS: MAGNESIUM 2.1 mg/dl (1.7-2.5)
[2016-04-23] MEDS: DOCUSATE SODIUM 100 MG CAP PO PRN ×2 (09:42→09:48)
[2016-04-23] MEDS: HYDROCODONE/APAP (5/325) TAB PO PRN (09:42)
[2016-04-23] MEDS: MAGNESIUM OXIDE 400 MG TAB PO SCH (09:43)
[2016-04-23] MEDS: ESCITALOPRAM 10 MG TAB PO SCH (09:43)
[2016-04-23] MEDS: LOSARTAN 25 MG TAB PO SCH (09:44)
[2016-04-23] MEDS: ALLOPURINOL 100 MG TAB PO SCH (09:44)
[2016-04-23] MEDS: CALCITRIOL 0.25 MCG CAP PO SCH (09:44)
[2016-04-23] MEDS: SPIRONOLACTONE 25 MG TAB PO SCH (09:44)
[2016-04-23] MEDS: FERROUS SULFATE (EC) 325 MG TAB PO SCH ×2 (09:48→18:06)
--- NOTE | 2016-04-23 11:41 | PN ---
DATE: 04/23/2016 SUBJECTIVE: The patient remains weak. No other acute events noted. No hemoptysis, hematemesis or hematochezia. OBJECTIVE: VITAL SIGNS: Blood pressure is 136/58, respiration 18, pulse 65, temperature 98.4. HEENT: Head is normocephalic. NECK: Supple. HEART: Regular rate. LUNGS: Show diminished breath sounds at the base. ABDOMEN: Soft, nontender to palpation. No rebound or guarding. EXTREMITIES: Negative for clubbing, cyanosis. Trace edema. DERMATOLOGIC: No rashes. MUSCULOSKELETAL: No joint effusions. NEUROLOGIC: No change in exam. MEDICATIONS: The patient's medications have been reviewed. LABORATORY DATA: White count 4.8, hemoglobin 8.8, hematocrit 26.5, platelet count is 146. Sodium 1 43, potassium 4.0, chloride 98, BUN 46, creatinine 1.47. ASSESSMENT AND PLAN: 1. Left femoral fracture, left hip fracture. The patient is status post arthroplasty. Continue ph ysical therapy. 2. Chronic kidney disease, stage III. Renal function stable. Continue supportive care, [place] do se meds, avoid nephrotoxins. 3. Hypertension, controlled. 4. Hypothyroidism. Continue Synthroid. 5. History of gout. Continue allopurinol. 6. Hypomagnesemia, improved. Continue to monitor. 7. Diastolic heart failure, currently stable. Continue medical management. 8. History of breast cancer. Continue to monitor. 9. Depression. Continue Lexapro. 10. Encephalopathy, improving. Continue medical management. 11. Anemia. Continue to monitor H and H levels. 12. Atrial fibrillation, currently rate controlled. Continue current medical management. Dictated By: JAKE OLIVO/MARCO ANTONIO Conf#: [id number] DID#: [id number]
[2016-04-23] MEDS: ACETAMINOPHEN 325 MG TAB PO PRN (12:45)
--- NOTE | 2016-04-23 13:17 | PN ---
Date/Time of Note Date/Time of Note DATE: 04/23/16 TIME: 13:06 Assessment/Plan VTE Prophylaxis VTE Prophylaxis Intervention: other (xarelto) Lines/Catheters Urinary Cath still in place: No Assessment/Plan Assessment/Plan 1. History of left total knee arthroplasty, status post fall with left periprosthetic distal femur fracture, s/p ORIF with impaired mobility/gait/ ADLs. Continue PT/OT. Min assist for upper body dressing, mod assist for lower body bathing. Acute post operative pain controlled, monitor. 2. Acute toxic metabolic encephalopathy. Continue ST. 3. Chronic kidney disease. Continue to monitor renal function, internal medicine managing. 4.Coronary artery disease. Continue medical management. 5.Hypertension. BP overall controlled, continue current medical management per internal medicine. 6. Chronic Atrial fibrillation. Rate controlled. Continue medical management. 7. Diastolic CHF. Stable. Continue diuretics. Monitor volume status. 8. Anemia. Hemoglobin/hematocrit stable, continue to monitor. Subjective 24 Hr Interval Summary Free Text/Dictation Rehab progress note Subjective: Reports mild pain in LLE currently, overall controlled. ROS: Denies headache, no dizziness, no new paresthesias, no abdominal pain, no nausea, no chest pain or shortness of breath. Exam/Review of Systems Vital Signs Vitals Vital Signs Date Time Temp Pulse Resp B/P Pulse Ox O2 Delivery O2 Flow Rate FiO2 04/23/16 07:30 97.8 82 20 142/63 04/22/16 20:00 92 04/22/16 20:00 Nasal Cannula 2.0 Intake and Output 04/22/16 04/22/16 04/23/16 15:00 23:00 07:00 Intake Total 480 ml 240 ml 750 ml Output Total 200 ml Balance 280 ml 240 ml 750 ml Exam General: Awake, alert, in no acute distress CV: Regular rate, s1s2 Lungs: Decreased bibasilar breath sounds, no accessory muscle use Abdomen soft, nontender, +Bowel sounds Extremities without cyanosis, surgical site clean and dry. Neuro: Follows simple commands, oriented to self, place and month/year. No new sensory changes. Results Result Diagram: 04/23/16 0630 04/23/16 0630 Results 24 hrs Laboratory Tests Test 04/23/16 06:30 Anion Gap 13 Basophils # 0.0 Basophils % 0.0 Blood Morphology Comment Blood Urea Nitrogen 46 H Calcium Level 7.7 L Carbon Dioxide Level 36 H Chloride Level 98 Creatinine 1.47 H Eosinophils # 0.1 Eosinophils % 2.2 Glucose Level 104 Hematocrit 26.5 L Hemoglobin 8.8 L Lymphocytes # 0.8 Lymphocytes % 17.4 Magnesium Level 2.1 Mean Corpuscular Hemoglobin 26.7 L Mean Corpuscular Hemoglobin Concent 33.3 Mean Corpuscular Volume 80.1 L Mean Platelet Volume 9.7 Monocytes # 0.3 Monocytes % 6.5 Neutrophils # 3.6 Neutrophils % 73.9 Nucleated Red Blood Cells # 0.0 Nucleated Red Blood Cells % 0.0 Phosphorus Level 3.8 Platelet Count 146 Potassium Level 4.0 Red Blood Count 3.31 L Red Cell Distribution Width 28.6 H Sodium Level 143 White Blood Count 4.8 # Medications Medications Current Medications Bisacodyl (Dulcolax Supp) 10 mg DAILY PRN [place] CONSTIPATION; Start 04/14/16 at 17 :30 Docusate Sodium (Colace) 100 mg BID PRN PO CONSTIPATION Last administered on 09:48; Admin Dose 100 MG; Start 04/14/16 at 17:30 Lactulose (Enulose) 20 gm DAILY PRN PO CONSTIPATION; Start 04/14/16 at 17:30 Polyethylene Glycol (Miralax) 17 gm DAILY PRN PO CONSTIPATION; Start 04/14/16 at 17:30 Quetiapine Fumarate (Seroquel) 12.5 mg Q6H PRN PO AGITATION; Start 04/14/16 at 17:30 Acetaminophen/ Hydrocodone Bitart ([place] (5/325)) 1 tab Q4H PRN PO SEVERE PAIN Last administered on 04/23/16 09:42; Admin Dose 1 TAB; Start 04/14/16 at 17:30 Levothyroxine Sodium (Synthroid) 100 mcg DAILY@06 PO Last administered on 06:35; Admin Dose 100 MCG; Start 04/15/16 at 06:00 Pantoprazole (Protonix Tab) 40 mg BID@06,18 PO Last administered on 04/23/16 06:35; Admin Dose 40 MG; Start 04/14/16 at 18:00 Tramadol HCl (Ultram) 50 mg Q6H PRN PO MODERATE PAIN Last administered on 21:20; Admin Dose 50 MG; Start 04/14/16 at 17:30 Acetaminophen (Tylenol Tab) 650 mg Q4H PRN PO PAIN AND OR ELEVATED TEMP Last administered on 04/23/16 12:45; Admin Dose 650 MG; Start 04/14/16 at 18:00 Allopurinol (Zyloprim) 100 mg DAILY PO Last administered on 04/23/16 09:44; Admin Dose 100 MG; Start 04/15/16 at 09:00 Calcitriol (Rocaltrol) 0.25 mcg DAILY PO Last administered on 04/23/16 09:44; Admin Dose 0.25 MCG; Start 04/15/16 at 09:00 Escitalopram Oxalate (Lexapro) 10 mg DAILY PO Last administered on 04/23/16 09 :43; Admin Dose 10 MG; Start 04/15/16 at 09:00 Tamoxifen Citrate (Nolvadex) 20 mg DAILY PO Last administered on 04/22/16 08: 48; Admin Dose 20 MG; Start 04/15/16 at 09:00 Temazepam (Restoril) 30 mg HS PRN PO INSOMNIA Last administered on 04/20/16 21 :49; Admin Dose 30 MG; Start 04/15/16 at 13:00 Betamethasone/ Clotrimazole (Lotrisone Cr) 1 applic BID TOP Last administered on 04/22/16 20:59; Admin Dose 1 APPLIC; Start 04/18/16 at 21:00 Losartan Potassium (Cozaar) 12.5 mg DAILY PO Last administered on 04/23/16 09: 44; Admin Dose 12.5 MG; Start 04/18/16 at 21:00 Magnesium Oxide (Mag-Ox 400) 400 mg DAILY PO Last administered on 04/23/16 09: 43; Admin Dose 400 MG; Start 04/19/16 at 10:00 Spironolactone (Aldactone) 25 mg DAILY PO Last administered on 04/23/16 09:44 ; Admin Dose 25 MG; Start 04/19/16 at 14:00 DWIGHT CHU Apr 23, 2016 13:16
[2016-04-23] MEDS: RIVAROXABAN 15 MG TABLET PO SCH (18:00)
[2016-04-23] MEDS: TAMOXIFEN 10 MG TAB PO SCH (18:14)
[2016-04-23 19:32] VITALS: BP 110/54; RESP 20
[2016-04-23] MEDS: BETAMETHASONE/CLOTRIMAZOLE 15 GM CR TOP SCH (21:00)
[2016-04-24] MEDS: HYDROCODONE/APAP (5/325) TAB PO PRN ×2 (01:54→10:08)
[2016-04-24] MEDS: LEVOTHYROXINE 100 MCG TAB PO SCH (06:56)
[2016-04-24] MEDS: FUROSEMIDE 40 MG TAB PO SCH ×3 (06:56→21:33)
[2016-04-24] MEDS: PANTOPRAZOLE (EC) 40 MG TAB PO SCH ×3 (06:56→21:32)
[2016-04-24 07:30] VITALS: BP 158/64; RESP 20
[2016-04-24 08:00] VITALS: BP 158/64; PULSE 76; RESP 18
[2016-04-24] MEDS: BETAMETHASONE/CLOTRIMAZOLE 15 GM CR TOP SCH ×2 (09:00→21:00)
[2016-04-24] MEDS: TAMOXIFEN 10 MG TAB PO SCH (10:06)
[2016-04-24] MEDS: ALLOPURINOL 100 MG TAB PO SCH (10:06)
[2016-04-24] MEDS: MAGNESIUM OXIDE 400 MG TAB PO SCH (10:07)
[2016-04-24] MEDS: SPIRONOLACTONE 25 MG TAB PO SCH (10:07)
[2016-04-24] MEDS: LOSARTAN 25 MG TAB PO SCH (10:07)
[2016-04-24] MEDS: ESCITALOPRAM 10 MG TAB PO SCH (10:07)
[2016-04-24] MEDS: CALCITRIOL 0.25 MCG CAP PO SCH (10:08)
[2016-04-24] MEDS: ASCORBIC ACID 500 MG TAB PO SCH ×3 (10:14→21:33)
[2016-04-24] MEDS: FERROUS SULFATE (EC) 325 MG TAB PO SCH ×2 (10:15→17:35)
--- NOTE | 2016-04-24 11:16 | PN ---
Date/Time of Note Date/Time of Note DATE: 04/24/16 TIME: 11:11 Assessment/Plan VTE Prophylaxis VTE Prophylaxis Intervention: other (xarelto) Lines/Catheters Urinary Cath still in place: No Assessment/Plan Assessment/Plan 1. Status post fall with left distal periprosthetic femur fracture s/p ORIF, history of left total knee arthroplasty, with impaired mobility/gait/ADLs. Continue PT/OT. Acute post operative pain controlled, continue prn norco and tramadol. 2. Acute toxic metabolic encephalopathy. Has moderate impairments with short term memory and problem solving. Continue ST. 3. Chronic kidney disease. Continue to monitor renal function, internal medicine managing. Avoid nephrotoxic agents. 4.Coronary artery disease. Continue medical management. 5.Hypertension. Monitor BP. Internal medicine managing. 6. Chronic Atrial fibrillation. Rate controlled. Continue medical management. 7. Diastolic CHF. Stable at this time, monitor. On diuretics per cardiology. 8. Anemia. Continue iron supplementation. Continue to monitor hemoglobin/ hematocrit. Subjective 24 Hr Interval Summary Free Text/Dictation Rehab progress note Subjective: Reports no current pain in LLE. Nursing reports no acute overnight events. ROS: Denies chest pain, no shortness of breath, no abdominal pain, no nausea, no vomiting, reports moving bowels. Exam/Review of Systems Vital Signs Vitals Vital Signs Date Time Temp Pulse Resp B/P Pulse Ox O2 Delivery O2 Flow Rate FiO2 04/24/16 07:30 97.7 76 20 158/64 98 04/23/16 20:00 Nasal Cannula 2.0 Intake and Output 04/23/16 04/23/16 04/24/16 15:00 23:00 07:00 Intake Total 810 ml 350 ml Output Total 100 ml 250 ml Balance 710 ml 100 ml Exam General: Awake, alert, in no acute distress CV: Regular rate, s1s2 Lungs: No wheezing. Respirations are nonlabored. Abdomen soft, nontender, bowel sounds present. Extremities without cyanosis. No new swelling. Neuro: No new focal changes. Follows simple commands. Results Result Diagram: 04/23/16 0630 04/23/16 0630 Medications Medications Current Medications Bisacodyl (Dulcolax Supp) 10 mg DAILY PRN [place] CONSTIPATION; Start 04/14/16 at 17 :30 Docusate Sodium (Colace) 100 mg BID PRN PO CONSTIPATION Last administered on 09:48; Admin Dose 100 MG; Start 04/14/16 at 17:30 Lactulose (Enulose) 20 gm DAILY PRN PO CONSTIPATION; Start 04/14/16 at 17:30 Polyethylene Glycol (Miralax) 17 gm DAILY PRN PO CONSTIPATION; Start 04/14/16 at 17:30 Quetiapine Fumarate (Seroquel) 12.5 mg Q6H PRN PO AGITATION; Start 04/14/16 at 17:30 Acetaminophen/ Hydrocodone Bitart ([place] (5/325)) 1 tab Q4H PRN PO SEVERE PAIN Last administered on 04/24/16 10:08; Admin Dose 1 TAB; Start 04/14/16 at 17:30 Levothyroxine Sodium (Synthroid) 100 mcg DAILY@06 PO Last administered on 06:56; Admin Dose 100 MCG; Start 04/15/16 at 06:00 Pantoprazole (Protonix Tab) 40 mg BID@,18 PO Last administered on 04/24/16 06:56; Admin Dose 40 MG; Start 04/14/16 at 18:00 Tramadol HCl (Ultram) 50 mg Q6H PRN PO MODERATE PAIN Last administered on 21:20; Admin Dose 50 MG; Start 04/14/16 at 17:30 Acetaminophen (Tylenol Tab) 650 mg Q4H PRN PO PAIN AND OR ELEVATED TEMP Last administered on 04/23/16 12:45; Admin Dose 650 MG; Start 04/14/16 at 18:00 Allopurinol (Zyloprim) 100 mg DAILY PO Last administered on 04/24/16 10:06; Admin Dose 100 MG; Start 04/15/16 at 09:00 Calcitriol (Rocaltrol) 0.25 mcg DAILY PO Last administered on 04/24/16 10:08; Admin Dose 0.25 MCG; Start 04/15/16 at 09:00 Escitalopram Oxalate (Lexapro) 10 mg DAILY PO Last administered on 04/24/16 10 :07; Admin Dose 10 MG; Start 04/15/16 at 09:00 Tamoxifen Citrate (Nolvadex) 20 mg DAILY PO Last administered on 04/24/16 10: 06; Admin Dose 20 MG; Start 04/15/16 at 09:00 Temazepam (Restoril) 30 mg HS PRN PO INSOMNIA Last administered on 04/20/16 21 :49; Admin Dose 30 MG; Start 04/15/16 at 13:00 Betamethasone/ Clotrimazole (Lotrisone Cr) 1 applic BID TOP Last administered on 04/23/16 21:00; Admin Dose 1 APPLIC; Start 04/18/16 at 21:00 Losartan Potassium (Cozaar) 12.5 mg DAILY PO Last administered on 04/24/16 10: 07; Admin Dose 12.5 MG; Start 04/18/16 at 21:00 Magnesium Oxide (Mag-Ox 400) 400 mg DAILY PO Last administered on 04/24/16 10: 07; Admin Dose 400 MG; Start 04/19/16 at 10:00 Spironolactone (Aldactone) 25 mg DAILY PO Last administered on 04/24/16 10:07 ; Admin Dose 25 MG; Start 04/19/16 at 14:00 DWIGHT CHU Apr 24, 2016 11:16
--- NOTE | 2016-04-24 15:44 | PN ---
DATE: 04/24/2016 SUBJECTIVE: The patient is stable, no acute events overnight. No fevers, chills, nausea, vomiting. No shortness of breath. OBJECTIVE: VITAL SIGNS: Blood pressure 110/54, respiratory rate 20, pulse 57, temperature 97.8. HEENT: Head is normocephalic. NECK: Supple. HEART: Regular rate. LUNGS: Show diminished breath sounds at base. ABDOMEN: Soft, nontender to palpation. No rebound or guarding. EXTREMITIES: Negative for clubbing, cyanosis, no edema. DERMATOLOGIC: No rashes. MUSCULOSKELETAL: No joint effusions. NEUROLOGIC: No change in exam. MEDICATIONS: Reviewed. LABORATORY DATA: Has been reviewed. ASSESSMENT AND PLAN: 1. Left distal femoral fracture status post open reduction internal fixation. The patient is curre ntly stable. Continue physical therapy. 2. Chronic kidney disease, stage III. Renal function has stabilized. Continue current treatment p da, supportive care, renally dose all meds. 3. Hypertension, controlled. Continue medical management. 4. Hypothyroidism. Continue Synthroid. 5. History of gout. Continue allopurinol. 6. Diastolic heart failure, currently stable. Continue current treatment plan. 7. History of breast cancer. Continue to monitor. 8. Depression. Continue Lexapro. 9. Encephalopathy, improving. 10. Anemia. Continue to monitor hemoglobin and hematocrit levels. 11. Atrial fibrillation, currently rate controlled. Continue current medical management. Dictated By: JAKE OLIVO/NTS Conf#: [id number] DID#: [id number]
[2016-04-24] MEDS: traMADol 50 MG TAB PO PRN (16:41)
[2016-04-24 20:34] VITALS: BP 138/63; RESP 18
[2016-04-24] MEDS: TEMAZEPAM 15 MG CAP PO PRN (21:34)
[2016-04-24] MEDS: RIVAROXABAN 15 MG TABLET PO SCH (21:34)
[2016-04-25] MEDS: PANTOPRAZOLE (EC) 40 MG TAB PO SCH ×2 (06:33→18:39)
[2016-04-25] MEDS: FUROSEMIDE 40 MG TAB PO SCH ×2 (06:34→18:00)
[2016-04-25] MEDS: LEVOTHYROXINE 100 MCG TAB PO SCH (06:34)
[2016-04-25 07:30] VITALS: BP 133/63; RESP 20
[2016-04-25] MEDS: ALLOPURINOL 100 MG TAB PO SCH (10:44)
[2016-04-25] MEDS: FERROUS SULFATE (EC) 325 MG TAB PO SCH ×2 (10:44→18:40)
[2016-04-25] MEDS: MAGNESIUM OXIDE 400 MG TAB PO SCH (10:44)
[2016-04-25] MEDS: CALCITRIOL 0.25 MCG CAP PO SCH (10:44)
[2016-04-25] MEDS: SPIRONOLACTONE 25 MG TAB PO SCH (10:45)
[2016-04-25] MEDS: LOSARTAN 25 MG TAB PO SCH (10:45)
[2016-04-25] MEDS: ESCITALOPRAM 10 MG TAB PO SCH (10:45)
[2016-04-25] MEDS: BETAMETHASONE/CLOTRIMAZOLE 15 GM CR TOP SCH ×2 (10:48→21:04)
--- NOTE | 2016-04-25 10:57 | PN ---
DATE: 04/25/2016 SUBJECTIVE: The patient is stable, no acute events overnight. No fevers, chills, nausea, vomiting. No shortness of breath. OBJECTIVE: VITAL SIGNS: Blood pressure 130/62, respiration 18, pulse 68, temperature 97.8. HEENT: Head is normocephalic. NECK: Supple. HEART: Regular rate. LUNGS: Show diminished breath sounds at base. ABDOMEN: Soft, nontender to palpation without rebound or guarding. EXTREMITIES: Negative for clubbing, cyanosis, edema. DERMATOLOGIC: No rashes. MUSCULOSKELETAL: No joint effusions. NEUROLOGIC: No change in exam. MEDICATIONS: Have been reviewed. LABORATORY DATA: Has been reviewed. No new labs. ASSESSMENT AND PLAN: 1. Left distal femoral fracture. Status post open reduction and internal fixation. The patient is currently stable. Continue physical therapy. 2. Chronic kidney disease, stage III. Renal function stabilized. Continue current treatment plan, supportive care, renally dose all medications. 3. Hypertension, controlled. Continue current medical management. 4. Hypothyroidism. Continue Synthroid. 5. History of gout. Continue allopurinol. 6. Diastolic heart failure, currently stable. Continue current treatment plan. 7. History of breast cancer. Continue tamoxifen 8. Depression. Continue Lexapro. 9. Anemia. Continue to monitor hemoglobin and hematocrit levels. 10. Atrial fibrillation, rate controlled. Continue current medical management. 11. Encephalopathy, improving. Dictated By: JAKE OLIVO/MARCO ANTONIO Conf#: [id number] DID#: [id number]
--- NOTE | 2016-04-25 12:24 | CONS ---
Date/Time of Note Date/Time of Note DATE: 04/25/16 TIME: 12:24 Consult Date/Type/Reason Admit Date/Time Apr 14, 2016 at 15:51 Type of Consultation: nephro Objective Vital Signs Date Time Temp Pulse Resp B/P Pulse Ox O2 Delivery O2 Flow Rate FiO2 04/24/16 20:34 97.8 68 18 138/63 100 04/24/16 20:00 Nasal Cannula 2.0 Intake and Output 04/24/16 04/24/16 04/25/16 15:00 23:00 07:00 Intake Total 1120 ml 240 ml Balance 1120 ml 240 ml INTERDISCIPLINARY TEAM CONFERENCE BOWEL- Cont BLADDER-Cont SKIN- intact OT- DRESSING-mod BATHING-mod TOILETING-mod PT- BED MOBILITY-mod TRANSFERS-mod AMBULATION-mod 60 feet A/P- Interdisciplinary team conference held today. Please see interdisciplinary sheet. Working toward d.cCatherine on 04/28 with post discharge follow up of physical therapy, occupational therapy. Results/Medications Result Diagram: 04/23/1630 04/23/16 0630 Medications Current Medications Bisacodyl (Dulcolax Supp) 10 mg DAILY PRN [place] CONSTIPATION; Start 04/14/16 at 17 :30 Docusate Sodium (Colace) 100 mg BID PRN PO CONSTIPATION Last administered on 09:48; Admin Dose 100 MG; Start 04/14/16 at 17:30 Lactulose (Enulose) 20 gm DAILY PRN PO CONSTIPATION; Start 04/14/16 at 17:30 Polyethylene Glycol (Miralax) 17 gm DAILY PRN PO CONSTIPATION; Start 04/14/16 at 17:30 Quetiapine Fumarate (Seroquel) 12.5 mg Q6H PRN PO AGITATION; Start 04/14/16 at 17:30 Acetaminophen/ Hydrocodone Bitart ([place] (5/325)) 1 tab Q4H PRN PO SEVERE PAIN Last administered on 04/24/16 10:08; Admin Dose 1 TAB; Start 04/14/16 at 17:30 Levothyroxine Sodium (Synthroid) 100 mcg DAILY@06 PO Last administered on 06:34; Admin Dose 100 MCG; Start 04/15/16 at 06:00 Pantoprazole (Protonix Tab) 40 mg BID@06,18 PO Last administered on 04/25/16 06:33; Admin Dose 40 MG; Start 04/14/16 at 18:00 Tramadol HCl (Ultram) 50 mg Q6H PRN PO MODERATE PAIN Last administered on 16:41; Admin Dose 50 MG; Start 04/14/16 at 17:30 Acetaminophen (Tylenol Tab) 650 mg Q4H PRN PO PAIN AND OR ELEVATED TEMP Last administered on 04/23/16 12:45; Admin Dose 650 MG; Start 04/14/16 at 18:00 Allopurinol (Zyloprim) 100 mg DAILY PO Last administered on 04/25/16 10:44; Admin Dose 100 MG; Start 04/15/16 at 09:00 Calcitriol (Rocaltrol) 0.25 mcg DAILY PO Last administered on 04/25/16 10:44; Admin Dose 0.25 MCG; Start 04/15/16 at 09:00 Escitalopram Oxalate (Lexapro) 10 mg DAILY PO Last administered on 04/25/16 10 :45; Admin Dose 10 MG; Start 04/15/16 at 09:00 Tamoxifen Citrate (Nolvadex) 20 mg DAILY PO Last administered on 04/24/16 10: 06; Admin Dose 20 MG; Start 04/15/16 at 09:00 Temazepam (Restoril) 30 mg HS PRN PO INSOMNIA Last administered on 04/24/16 21 :34; Admin Dose 30 MG; Start 04/15/16 at 13:00 Betamethasone/ Clotrimazole (Lotrisone Cr) 1 applic BID TOP Last administered on 04/25/16 10:48; Admin Dose 1 APPLIC; Start 04/18/16 at 21:00 Losartan Potassium (Cozaar) 12.5 mg DAILY PO Last administered on 04/25/16 10: 45; Admin Dose 12.5 MG; Start 04/18/16 at 21:00 Magnesium Oxide (Mag-Ox 400) 400 mg DAILY PO Last administered on 04/25/16 10: 44; Admin Dose 400 MG; Start 04/19/16 at 10:00 Spironolactone (Aldactone) 25 mg DAILY PO Last administered on 04/25/16 10:45 ; Admin Dose 25 MG; Start 04/19/16 at 14:00 SHARRON CELESTIN MD Apr 25, 2016 12:24 SHARRON CELESTIN MD Apr 25, 2016 12:24
[2016-04-25] MEDS: TAMOXIFEN 10 MG TAB PO SCH (15:23)
[2016-04-25] MEDS: RIVAROXABAN 15 MG TABLET PO SCH (18:39)
[2016-04-25] MEDS: ASCORBIC ACID 500 MG TAB PO SCH (18:44)
[2016-04-25 21:30] VITALS: BP 130/56; RESP 18
--- NOTE | 2016-04-25 21:48 | PN ---
DATE: 04/25/2016 CARDIOLOGY FOLLOWUP PROGRESS NOTE SUBJECTIVE: Discussed with the staff. The patient with no chest pain or pressure. No palpitation. Breathing has remained stable. Complains of left knee pain. MEDICATIONS: Reviewed. PHYSICAL EXAMINATION: VITAL SIGNS: Temperature 97.8, heart rate of 76, blood pressure 138/63, respiratory rate of 18, sat urating 100%. HEENT: Normocephalic, atraumatic. No acute distress. Pupils are equal and round. CARDIOVASCULAR: Irregularly irregular. Systolic murmur. PULMONARY: No wheezes heard. GASTROINTESTINAL: Soft, nontender. EXTREMITIES: Positive lower extremity edema. NEUROLOGIC: Awake, responds appropriately. PSYCHIATRIC: Appears to be calm and pleasant. LABORATORY: WBC of 4.8, hemoglobin 8.8, platelets 146. Sodium 143, potassium 4, BUN of 46, creatin ine 1.48, glucose of 104. ASSESSMENT: 1. Atrial fibrillation, on heart rate control, anticoagulation. 2. Anemia, appeared to be stable. We will monitor. 3. History of cerebrovascular accident, anticoagulation. 4. Hypertension. 5. Status post hip fracture and surgery. RECOMMENDATIONS: We will continue with the current cardiac care. Physical therapy and rehab will b e continued. We will follow up labs tomorrow again. Dictated By: AUGUST HOUSE MD AV/MARCO ANTONIO Conf#: [id number] DID#: [id number] CC: SHARRON CELESTIN MD;*End*
[2016-04-26] MEDS: PANTOPRAZOLE (EC) 40 MG TAB PO SCH (05:51)
[2016-04-26] MEDS: LEVOTHYROXINE 100 MCG TAB PO SCH (05:51)
[2016-04-26] MEDS: FUROSEMIDE 40 MG TAB PO SCH (05:55)
[2016-04-26 07:42] LABS: ALBUMIN 2.9 g/dl (3.3-4.9)
[2016-04-26 07:43] LABS: POTASSIUM 3.9 mmol/L (3.5-5.1)
[2016-04-26 07:45] LABS: BILIRUBIN,INDIRECT 0.2 mg/dl (0-1.1); BILIRUBIN,TOTAL 0.2 mg/dl (0.2-1.3); CREATININE 1.23 mg/dl (0.44-1.00)
[2016-04-26 07:46] LABS: ALBUMIN/GLOBULIN RATIO 0.96; CALCIUM 7.6 mg/dl (8.4-10.2); TOTAL PROTEIN 5.9 g/dl (6.1-8.1)
[2016-04-26 08:44] VITALS: BP 125/60; RESP 18
[2016-04-26] MEDS: CALCITRIOL 0.25 MCG CAP PO SCH (09:21)
[2016-04-26] MEDS: ALLOPURINOL 100 MG TAB PO SCH (09:21)
[2016-04-26] MEDS: TAMOXIFEN 10 MG TAB PO SCH (09:22)
[2016-04-26] MEDS: FERROUS SULFATE (EC) 325 MG TAB PO SCH (09:23)
[2016-04-26] MEDS: LOSARTAN 25 MG TAB PO SCH (09:24)
[2016-04-26] MEDS: ASCORBIC ACID 500 MG TAB PO SCH (09:24)
[2016-04-26] MEDS: SPIRONOLACTONE 25 MG TAB PO SCH (09:24)
[2016-04-26] MEDS: MAGNESIUM OXIDE 400 MG TAB PO SCH (09:24)
[2016-04-26] MEDS: ESCITALOPRAM 10 MG TAB PO SCH (09:25)
[2016-04-26] MEDS: BETAMETHASONE/CLOTRIMAZOLE 15 GM CR TOP SCH (09:26)
--- NOTE | 2016-04-26 12:03 | PN ---
DATE: 04/26/2016 SUBJECTIVE: The patient continues to have sundowning at night and continues to show evidence of cog nitive decline, but has been overall stable, no other events noted. The patient is working with [employer]. OBJECTIVE: VITAL SIGNS: Blood pressure 125/60, respiration 18, pulse 92, temperature 98.1. HEENT: Head is normocephalic. NECK: Supple. HEART: Regular rate. LUNGS: Show diminished breath sounds at base. ABDOMEN: Soft, nontender to palpation. No rebound or guarding. EXTREMITIES: Negative for clubbing, cyanosis. Trace edema. DERMATOLOGIC: No rashes. MUSCULOSKELETAL: No joint effusions. NEUROLOGIC: No change in exam. MEDICATIONS: The patient's medications have been reviewed. LABORATORY DATA: Shows sodium 143, potassium 3.9, chloride , BUN 38, creatinine 1.23. ASSESSMENT AND PLAN: 1. Left distal femoral fracture. The patient is status post open reduction internal fixation. Con tinue physical therapy. 2. Chronic kidney disease, stage 3, renal function stable, continue current treatment plan. 3. Hypertension, controlled. Continue medical management. 4. Hypothyroidism. Continue Synthroid. 5. Gout. Continue allopurinol. 6. Diastolic heart failure. The patient is stable nearing euvolemic status. Continue current medi janice management. 7. History of breast cancer. Continue tamoxifen. 8. Depression. Continue Lexapro. 9. Anemia. Continue to monitor hemoglobin and hematocrit levels. 10. Acute encephalopathy on senile dementia. The patient continues to show evidence of sundowning, continues to have cognitive decline. We will continue current medical management with Restoril, Se roquel and Lexapro. 11. Atrial fibrillation, rate controlled. Continue medical management. Dictated By: JAKE OLIVO/NTS Conf#: [id number] DID#: [id number]
--- NOTE | 2016-04-27 19:14 | DS ---
DATE OF ADMISSION: 04/14/2016 DATE OF DISCHARGE: 04/26/2016 ADMISSION DIAGNOSES: 1. Left periprosthetic femur fracture, status post open reduction and internal fixation. 2. Acute toxic metabolic encephalopathy. 3. Acute pain syndrome. 4. Chronic kidney disease. 5. Hypertension. 6. Hypothyroidism. 7. Depression and anxiety. 8. Anemia. 9. Coronary artery disease. 10. Atrial fibrillation. 11. History of left total knee arthroplasty. 12. Impairments in self-care, mobility and cognition. DISCHARGE DIAGNOSES: 1. Left periprosthetic femur fracture, status post open reduction and internal fixation. 2. Acute toxic metabolic encephalopathy. 3. Acute pain syndrome. 4. Chronic kidney disease. 5. Hypertension. 6. Hypothyroidism. 7. Depression and anxiety. 8. Anemia. 9. Coronary artery disease. 10. Atrial fibrillation. 11. History of left total knee arthroplasty. 12. Impairments in self-care, mobility and cognition. HOSPITAL COURSE: The patient was admitted for comprehensive interdisciplinary acute rehab and did m james steady functional gains during the course of the stay. The patient progressed from an initial m aximal assist for self-care and mobility tasks and progressed to the point of seated self-care activ ities at a contact guard to min assist level, contact guard to min assist for transfers and ambulati on over 150 feet with the use of a front-wheel walker. Despite excellent functional gains, family r eports they are unable to provide the assistance necessary at home. The patient now able to tolerat e lower level of care. The patient is being discharged to snf facility for continued th erapy at lower level of care. DISCHARGE MEDICATIONS: Per the medication reconciliation sheet. CONDITION ON DISCHARGE: Stable. Dictated By: SHARRON CERNA/MARCO ANTONIO Conf#: [id number] DID#: [id number]
== END 2016-04-26 13:25 | DRG 559 ==
LOC: VRC 15:51
PROVIDERS: ADMIT Physical Medicine & Rehabilitation; ATTEND Internal Medicine
PROC: F07Z5FZ Bed Mobility Treatment using Assistive, Adaptive, Supportive or Protective Equipment (ICD-10-PCS; principal; 2016-04-15)
PROC: F07Z8FZ Transfer Training Treatment using Assistive, Adaptive, Supportive or Protective Equipment (ICD-10-PCS; 2016-04-15)
PROC: F07Z9FZ Gait Training/Functional Ambulation Treatment using Assistive, Adaptive, Supportive or Protective Equipment (ICD-10-PCS; 2016-04-15)
PROC: F08Z2FZ Grooming/Personal Hygiene Treatment using Assistive, Adaptive, Supportive or Protective Equipment (ICD-10-PCS; 2016-04-15)
PROC: F08Z1FZ Dressing Techniques Treatment using Assistive, Adaptive, Supportive or Protective Equipment (ICD-10-PCS; 2016-04-15)
PROC: F08Z0FZ Bathing/Showering Techniques Treatment using Assistive, Adaptive, Supportive or Protective Equipment (ICD-10-PCS; 2016-04-15)
DX: S72.92XD Unspecified fracture of left femur, subsequent encounter for closed fracture with routine healing (principal); G92 Toxic encephalopathy; N18.4 Chronic kidney disease, stage 4 (severe); D69.6 Thrombocytopenia, unspecified; F33.2 Major depressive disorder, recurrent severe without psychotic features; I48.2 Chronic atrial fibrillation; I13.0 Hypertensive heart and chronic kidney disease with heart failure and stage 1 through stage 4 chronic kidney disease, or unspecified chronic kidney disease; I50.32 Chronic diastolic (congestive) heart failure; M97.02XA Periprosthetic fracture around internal prosthetic left hip joint, initial encounter; E83.42 Hypomagnesemia; F03.90 Unspecified dementia, unspecified severity, without behavioral disturbance, psychotic disturbance, mood disturbance, and anxiety; D63.8 Anemia in other chronic diseases classified elsewhere; W01.0XXD Fall on same level from slipping, tripping and stumbling without subsequent striking against object, subsequent encounter; G89.18 Other acute postprocedural pain; E03.9 Hypothyroidism, unspecified; I25.10 Atherosclerotic heart disease of native coronary artery without angina pectoris; M1A.9XX0 Chronic gout, unspecified, without tophus (tophi); F41.9 Anxiety disorder, unspecified; Z96.642 Presence of left artificial hip joint; Z85.3 Personal history of malignant neoplasm of breast; Z86.73 Personal history of transient ischemic attack (TIA), and cerebral infarction without residual deficits
CPT/HCPCS: 71010; 80048; 80053; 81001; 81003; 83735; 83880; 84100; 85025; 87075; 87081; 87086; 90686; 92507; 92523; 95852; 97110; 97112; 97116; 97150; 97163; 97167; 97530; 97535; J3475